=== PATIENT | male | born 1955 | race Caucasian/White ===

== ENCOUNTER 2022-07-15 03:17 | Emergency (ER) | payer OTHER, SELFPAY ==
[2022-07-15 03:18] VITALS: BP 114/70; PULSE 106; RESP 24; TEMP 36.1; O2SAT 98; BMI 22.1
--- NOTE | 2022-07-15 03:31 | EKG12_ITS ---
Test Reason : SOB Blood Pressure : / mmHG Vent. Rate : 100 BPM Atrial Rate : 100 BPM P-R Int : 170 ms QRS Dur : 094 ms QT Int : 342 ms P-R-T Axes : 074 088 071 degrees QTc Int : 441 ms Normal sinus rhythm Incomplete right bundle branch block Borderline ECG Confirmed by MAYURI SILVESTRE, JENNIFER ([id number]), state editor JOSE L MARTINEZ ([id number]) on 07/15/2022 2:03:04 PM Referred By: Confirmed By:JENNIFER MESSINA MD
--- NOTE | 2022-07-15 03:32 | ED.VIS.DYS ---
HPI History of Present Illness Chief Complaint: Shortness of Breath Informant: patient Narrative Narrative: Patient presents with shortness of breath. Patient states he has a history of asthma. He has a albuterol inhaler at home. But he also has been using his 's nebulizer for the last couple days. He states he started increasing wheezing and shortness of breath on Friday. He coughs but really is not bringing up any sputum. No hemoptysis. He feels tight in his chest. He states this feels like an asthma exacerbation to him but it is much worse. He has been on prednisone in the past but has been a long time. He denies ever having been admitted to the hospital before for this. No fevers or chills. Nothing is consistently making this better or worse. Inhalers help but very little. No recent travel surgery immobilization personal or family history of DVT or PE. No leg swelling. He has no history of heart disease. No high blood pressure cholesterol or diabetes. Not on home oxygen. He does still smoke. [facility] Medical History Asthma Home Medications albuterol sulfate 2.5 mg/3 mL (0.083 %) solution for nebulization 2.5 mg (3 mL) inhalation Q4H PRN #25 vials 07/15/22 [Rx Last Taken Unknown] prednisone 20 mg tablet 60 mg PO DAILY #15 tabs 07/15/22 [Rx Last Taken Unknown] Allergy/AdvReac Type Severity Reaction Status Date / Time No Known Allergies Allergy Verified 07/15/22 03:21 Social History Smoking Status: Current every day smoker tobacco type: cigarettes ROS ROS ED Constitutional Constitutional ED: Denies chills or fever(s) ENT ENT ED: Denies rhinorrhea or sore throat Cardiovascular Cardiovascular: Denies palpitations Respiratory/Chest Respiratory/Chest: Reports cough, dyspnea and dyspnea on exertion; Denies sputum Gastrointestinal Gastrointestinal: Denies abdominal pain, nausea or vomiting Genitourinary Genitourinary ED: Denies dysuria Musculoskeletal Musculoskeletal: Denies arthralgias or myalgias Integumentary Denies rash Neurologic Neurologic: Denies headache(s), paresthesias or weakness Endocrine Endocrinology: Denies polydipsia or polyuria Hematologic/Lymphatic Hematologic/Lymphatic: Denies easy bleeding or easy bruising Allergic/Immunologic Allergic/Immunologic ED: Denies urticaria EXAM Physical Exam Const Vital Signs: 07/15/22 03:18 07/15/22 03:21 Temperature 97 F L Temperature Source Temporal Pulse Rate 106 H Respiratory Rate 24 H Respiratory Effort Short of Breath Accessory Muscle Use Respiratory Pattern Tachypnea Blood Pressure 114/70 Blood Pressure Mean 84 Pulse Ox 98 Oxygen Delivery Method Room Air Positive well nourished and well developed Constitutional Narrative: Patient is having increased work of breathing. He sounds very tight. I can hear wheezes especially when he coughs. He carries on conversation but slightly shortened sentences. General Appearance ED: well developed HEENT Reports moist mucous membranes Eyes General Eye ED: Negative for scleral icterus Neck no JVD Resp Resp Narrative: Increased respiratory effort. There is actually very little breath sounds bilaterally. When I have him take a deep breath and blow out quickly I can hear wheeze. When he coughs I hear wheezing. I do not hear rhonchi or rales. But he has diffusely diminished breath sounds with poor air motion Auscultation: wheezes and diminished lung sounds; Negative for rales or rhonchi Cardio regular rhythm Rate: tachycardic GI non-tender Palpation: soft Back/Spine no CVA tenderness Extremity normal to inspection General Extremety ED: Negative for edema or tenderness General Extremity: Negative for edema Neuro Sensorium / Orientation: alert; Negative for lethargic or stuporous Psych mental status grossly normal Skin no wounds General Skin Exam: Negative for jaundice MDM MDM MDM Narrative Medical decision making narrative: Patient CBC shows normal white count hemoglobin and minimally low platelets. This is a nonspecific finding that can be followed up. Electrolytes show no marked abnormalities. Troponin was negative with over a day of symptoms. BNP was normal. Chest x-ray showed no acute process. I rechecked the patient. He is surprisingly improved. He is moving good air now. I hear almost no expiratory wheeze at all. He is laying back in bed and feeling much better. We walked him. His lowest saturation was 93% and he actually did quite well. I think we can get him home at this time. I will write for steroids. I will refill some albuterol nebulizer solution because he is out now. He was encouraged to quit smoking. We discussed returning if he is having worsening trouble breathing, fevers, sputum, blood in the sputum or any other concerns Lab Data Attestation: I reviewed the patient's lab results. Labs: Laboratory Results - last 24 hr 07/15/22 07/15/22 07/15/22 03:50 03:50 03:50 WBC 9.0 RBC 4.57 L Hgb 14.2 Hct 42.6 MCV 93.2 MCH 31.1 MCHC 33.3 RDW Std Deviation 47.7 H RDW Coeff of Ronnie 13.9 Plt Count 129 L MPV 12.0 Immature Gran % (Auto) 0.300 Neut % (Auto) 64.1 Lymph % (Auto) 18.2 L Ross % (Auto) 9.3 Eos % (Auto) 7.8 H Baso % (Auto) 0.3 Absolute Neuts (auto) 5.8 Absolute Lymphs (auto) 1.64 Nucleated RBC % 0 Differential Comment SCANNED Sodium 140 Potassium 4.1 Chloride 107 Carbon Dioxide 25.0 Anion Gap 8 BUN 14 Creatinine 0.64 L Estim Creat Clear Calc 123.54 Est GFR (MDRD) Af Amer 162 Est GFR (MDRD) Non-Af 134 BUN/Creatinine Ratio 21.9 H Glucose 113 H Calcium 8.7 Troponin I High Sens 4 B-Natriuretic Peptide 12.6 Radiography Diagnostic Testing: Clinical Impression(s) from Imaging Studies Chest X-Ray 07/15/22 04:18 IMPRESSION: No evidence of active intrathoracic disease. Electronically Signed: Zuleima Chung MD at 4:39 EDT , EKG Initial EKG: Comments: EKG shows normal sinus rhythm with overall rate of 100. No ectopy. No acute ST elevation or depression. There is a partial right bundle branch block. However, the CO interval, QRS duration and QTc are normal. Discharge Plan Triage Chief Complaint: Shortness of Breath ED Provider: Latrell Sanchez Dx/Rx/DC Orders Clinical Impression: Acute asthma exacerbation, Tobacco abuse Instructions: ED Asthma, Acute (Adult) Prescriptions: New albuterol sulfate 2.5 mg /3 mL (0.083 %) solution for nebulization 2.5 mg inhalation Q4H PRN Qty: 25 3RF Rx Instructions: Use q4 hours and PRN for wheezing prednisone 20 mg tablet 60 mg PO DAILY Qty: 15 0RF Primary Care Provider: Care Physician,No Primary Referrals: Katherin Cantrell MD [Med Staff - Radio Frequency Design Engineer] - 1-2 Days if not improving Care Physician,No Primary [Primary Care Provider] - Disposition Disposition: Home, Self Care
[2022-07-15] MEDS: MethylPREDNISolone 125 MG/2 ML Vial IV (03:50)
[2022-07-15] MEDS: Ipratropium/Albuterol Sulfate 3 ML AMPUL.NEB INHALATION (03:53)
[2022-07-15] MEDS: Albuterol 2.5 MG/3 ML VIAL.NEB. INHALATION (03:53)
[2022-07-15 04:00] LABS: Absolute Lymphocyte Count 1.64 X10^3/uL (0.83-4.51); Absolute Neutrophil Count 5.8 X10^3/uL (2.0-7.7); Basophil# 0.03 X10^3/uL; Basophil% 0.3 % (0-1); Eosinophils% 7.8 % (0-5); Hematocrit 42.6 % (40-54); Hemoglobin 14.2 g/dL (13.0-16.5); Lymphocyte # 1.64 X10^3/ul (0.83-4.51); Lymphocyte % 18.2 % (19-41); Mean Corp Hgb Conc 33.3 g/dL (32-36); Mean Corpuscular Hgb 31.1 pg (27.0-32.0); Mean Corpuscular Volume 93.2 fL (80-94); Monocyte# 0.84 X10^3/uL; Monocyte% 9.3 % (0-10); NRBC Flagged by Analyzer 0 % (0-5); Neutrophil # 5.75 X10^3/uL (2.7-7.7); Neutrophil % 64.1 % (47-70); POSITIVE MORPHOLOGY YES; Platelet Count 129 K/mm3 (150-450); RBC Distribution Width CV 13.9 % (11.6-14.6); RBC Distribution Width SD 47.7 fl (35.1-43.9); Red Blood Count 4.57 M/mm3 (4.6-6.2)
[2022-07-15 04:04] LABS: Differential Indicated SCAN CRITERIA MET
[2022-07-15 04:17] LABS: BNP,B-Type NATRIURETIC PEPTIDE 12.6 pg/mL (0-100)
--- NOTE | 2022-07-15 04:18 | RAD_ITS ---
STUDY: X-RAY CHEST REASON FOR EXAM: Male, 67 years old. SOB PATIENT FEELING SHORT OF BREATH ALL DAY TODAY. HISTORY OF ASHTMA, ALBUTEROL NOT HELPING HIM. TECHNIQUE: AP portable. 4:14 AM COMPARISON: None. FINDINGS: LUNGS: No consolidation. No pneumothorax. MEDIASTINUM: Aorta atherosclerotic. CARDIAC SILHOUETTE: Not enlarged. BONES AND SOFT TISSUES: No acute abnormalities. RAD/Chest 1 View (Portable) IMPRESSION: No evidence of active intrathoracic disease. Electronically Signed: Zuleima Chung MD at 4:39 EDT ,
[2022-07-15 04:19] LABS: Differential Comment SCANNED
[2022-07-15 04:20] LABS: Anion Gap 8 (5-15); BUN 14 mg/dL (7-18); BUN/Creat Ratio 21.9 RATIO (10-20); Calcium,Total 8.7 mg/dL (8.5-10.1); Chloride 107 mmol/L (98-107); Creatinine, Serum 0.64 mg/dL (0.70-1.30); EST Glomerular Filtration Rate 134 mL/min (>60); Est Glom Filt Rate - Afr Amer 162 mL/min (>60); Estimated Creatinine Clearance 123.54 ml/min; Glucose 113 mg/dL (74-106); Potassium 4.1 mmol/L (3.5-5.1); Sodium Level 140 mmol/L (136-145); Troponin-I HS 4 pg/mL (3.0-78.0)
[2022-07-15 05:26] VITALS: RESP 20; O2SAT 94; O2SAT 96
[2022-07-15 05:47] VITALS: PULSE 100; RESP 18; O2SAT 95
== END 2022-07-15 06:03 | disposition home or self-care (01) ==
PROVIDERS: Emergency Provider Emergency Medicine; Visit Provider Emergency Medicine
DX: J45.901 Unspecified asthma with (acute) exacerbation (principal); F17.210 Nicotine dependence, cigarettes, uncomplicated
CPT/HCPCS: 71045; 80048; 83880; 84484; 85025; 87428; 93005; 99285; A4216

== ENCOUNTER 2022-07-31 07:00 | Emergency (ER) | payer OTHER, SELFPAY ==
[2022-07-31 07:01] VITALS: BP 154/100; PULSE 94; RESP 22; TEMP 36.6; O2SAT 96; BMI 23.1
[2022-07-31 07:06] VITALS: O2SAT 96
--- NOTE | 2022-07-31 07:09 | EKG12_ITS ---
Test Reason : SOB Blood Pressure : / mmHG Vent. Rate : 083 BPM Atrial Rate : 083 BPM P-R Int : 128 ms QRS Dur : 102 ms QT Int : 360 ms P-R-T Axes : 071 087 064 degrees QTc Int : 423 ms Normal sinus rhythm Normal ECG Confirmed by ABIGAIL SILVESTRE, KENDRA ([id number]), marketing editor JOSE L MARTINEZ ([id number]) on 08/02/2022 2:01:39 PM Referred By: ALRIN Confirmed By:GRISELDA HAYES MD
--- NOTE | 2022-07-31 07:11 | ED.VIS.DYS ---
HPI History of Present Illness Chief Complaint: Asthma Informant: patient Onset/Context/Timing Onset: Days Context: gradual Timing: Continuous Current Severity: Mild Maximum Severity: Moderate Worsened by: Coughing Relieved by: Albuterol Associated Symptoms cough and clear sputum; Negative for fever, sore throat or sweats Chest Pain: Positive for None Narrative Narrative: 67-year-old male history of asthma. May have undiagnosed COPD because he had a long smoking history. Last asthma flare was about 2 weeks ago for which he was placed on 5 days of steroids. He does have both inhalers and nebulizer at home. He complains of a cough of clear sputum. No fever. No chest pain. No leg pain. No hemoptysis. No history of DVT or PE. PE Risk Factors: Negative for Cancer, OCP + Smoking + > 35, Prior DVT or PE, Recent immobilization, Recent surgery or Recent travel Prior similar symptoms: Yes Recent Illness/Hospitalization: No PFSH PFSH Medical History Asthma Home Medications albuterol sulfate 2.5 mg/3 mL (0.083 %) solution for nebulization 2.5 mg (3 mL) inhalation Q4H PRN #25 vials 07/15/22 [Rx Last Taken Unknown] albuterol sulfate 2.5 mg/3 mL (0.083 %) solution for nebulization 2.5 mg (3 mL) inhalation Q4H PRN #25 vials 07/31/22 [Rx Last Taken Unknown] prednisone 20 mg tablet 40 mg PO DAILY 10 days #20 tabs 07/31/22 [Rx Last Taken Unknown] Allergy/AdvReac Type Severity Reaction Status Date / Time No Known Allergies Allergy Verified 07/31/22 07:19 Social History Smoking Status: Current every day smoker tobacco type: cigarettes ROS ROS ED ROS Narrative Shortness of breath, wheezing, cough of clear sputum. Review of Systems ROS Unobtainable: Denies due to encephalopathy Constitutional Constitutional ED: Denies chills or fever(s) Eyes Eyes: Denies blurry vision ENT ENT ED: Denies ear pain or sore throat Cardiovascular Cardiovascular: Denies chest pain Respiratory/Chest Respiratory/Chest: Reports cough and dyspnea Gastrointestinal Gastrointestinal: Denies abdominal pain Genitourinary Genitourinary ED: Denies dysuria or hematuria Musculoskeletal Musculoskeletal: Denies arthralgias Integumentary Denies abscess Neurologic Neurologic: Denies headache(s) Psychiatric Psychiatric: Denies anxiety Endocrine Endocrinology: Denies cold intolerance Hematologic/Lymphatic Hematologic/Lymphatic: Denies easy bleeding Allergic/Immunologic Allergic/Immunologic ED: Denies mouth swelling EXAM Physical Exam Narrative Exam Narrative: 67-year-old male vital signs stable afebrile. at bedside. H EENT exam unremarkable. Neck nontender no JVD. No lymphadenopathy. Lungs prolonged expiratory phase. Expiratory wheezing. Decreased air movement. Heart regular rhythm rate about 95 no murmur. Chest wall nontender. Abdomen soft nontender. Moving all 4 extremities. Calves are nontender without edema or cords. Neurologically is awake and alert. He is able to speak but they are short and she sentences. He is obviously short of breath. Const Vital Signs: 07/31/22 07:01 07/31/22 07:06 07/31/22 07:20 Temperature 97.8 F Temperature Source Temporal Pulse Rate 94 86 Respiratory Rate 22 H 24 H Respiratory Effort Short of Breath Labored Respiratory Pattern Tachypnea Blood Pressure 154/100 H Blood Pressure Mean 118 Pulse Ox 96 Oxygen Delivery Method Room Air Room Air Positive well nourished and well developed; Negative for obese, cachectic, contractures or unkempt General Appearance ED: well developed; Negative for unkempt, cachectic, contractures or NAD Nutritional Appearance: Negative for cachectic or obese HEENT Reports moist mucous membranes; Denies dry mucous membranes atraumatic; Negative for trauma Mouth ED: No dry mucous membranes Mouth: No dry mucous membranes Eyes PERRL and EOMs intact bilaterally General Eye ED: Negative for pale conjunctiva or scleral icterus Neck no lymphadenopathy, supple, no meningeal signs and no JVD General: Negative for tenderness Lymph Lymphatic: Negative for other Chest Wall Chest: Negative for other Resp No normal respiratory effort and No clear to auscultation bilaterally Resp Narrative: Decreased breath sounds bilaterally. Expiratory wheezing. Decreased air movement. Prolonged expiratory phase. Effort and Inspection: Negative for pain with movement Auscultation: wheezes; Negative for rales or rhonchi Cardio regular rate, regular rhythm, S1 normal heart sound, S2 normal heart sound and no murmurs Rate: Negative for bradycardia Rhythm: Negative for abnormal rhythm GI non-tender, non-distended and no masses Inspection: Negative for other Auscultation: normoactive bowel sounds Palpation: soft; Negative for tender Bladder / Kidney Exam: No other Back/Spine no CVA tenderness and normal to inspection General Back: Negative for CVA tenderness Extremity normal to inspection General Extremety ED: Negative for edema General Extremity: Negative for edema Neuro oriented x3 and CN's II-XII intact bilaterally Sensorium / Orientation: alert and oriented to person Speech: speech normal Motor Exam: strength 5/5 throughout Psych mental status grossly normal Appearance: Negative for unkempt Attitude: No agitated Mood & Affect: Negative for depressed Thought Process: No normal thought process Skin no wounds General Skin Exam: Negative for jaundice Lesions: no lesions Rashes: no rashes Trauma: Negative for abrasion MDM MDM MDM Narrative Medical decision making narrative: 67-year-old male with a history of asthma most likely also underlying COPD has been undiagnosed. With wheezing and shortness of breath. He will be treated with aerosols oral prednisone. Chest x-ray and EKG will be obtained. Repeat exam patient is doing much better at 8:25 AM. We went over his EKG and chest x-ray results. Follow-up with primary care physician. Prednisone daily starting tomorrow. He was given refills for his home nebulizer. Radiography Chest X-Ray - ED: 1 View, Read by ED Physician, Heart, Lungs, Mediastinum, Bony Structures, No Acute Disease and Chronic Changes Diagnostic Testing: Clinical Impression(s) from Imaging Studies Chest X-Ray 07/31/22 07:35 IMPRESSION: Hyperinflation suggesting emphysema. Electronically Signed: Silvio Rick MD at 8:05 EDT , Chest x-ray, portable, single view interpreted by myself shows no acute process. Normal cardiac silhouette mediastinum. Normal lung murrieta. No infiltrate. No pulmonary edema. Chronic changes. Suspected underlying COPD. Rhythm Strip Rhythm Strip: Sinus Rhythm Rate: 83 Ectopy: None EKG Initial EKG: Attestation: I personally reviewed and interpreted this EKG as follows: Interpretation: Sinus Rhythm and No Acute Injury Pattern Comments: Normal sinus rhythm rate 83 no acute signs of ID or ischemia. No dysrhythmia. Discharge Plan Triage Chief Complaint: Asthma ED Provider: Leroy Allen Dx/Rx/DC Orders Clinical Impression: Acute asthma exacerbation, COPD (chronic obstructive pulmonary disease) Instructions: What Is COPD, Asthma Prescriptions: New prednisone 20 mg tablet 40 mg PO DAILY 10 Days Qty: 20 0RF albuterol sulfate 2.5 mg /3 mL (0.083 %) solution for nebulization 2.5 mg inhalation Q4H PRN Qty: 25 0RF Rx Instructions: Use q4 hours and PRN for wheezing No Action albuterol sulfate 2.5 mg /3 mL (0.083 %) solution for nebulization 2.5 mg inhalation Q4H PRN Qty: 25 3RF Rx Instructions: Use q4 hours and PRN for wheezing Primary Care Provider: Care Physician,No Primary Referrals: Patel Wright MD [Med Staff - Active Staff] - As soon as possible Marbin Nunez MD [Med Staff - Sharepoint Admin] - 1 Week Care Physician,No Primary [Primary Care Provider] - Activity Restrictions/Additional Instructions: Absolutely must stop smoking altogether. Prednisone 40 mg a day for the next 10 days. Follow-up with your primary care provider if not improving. Follow-up with a animal nutrition teacher. Return if worse. Disposition Disposition: Home, Self Care
[2022-07-31] MEDS: predniSONE 20 MG Tablet 80 MG PO (07:15)
[2022-07-31 07:20] VITALS: PULSE 86; RESP 24
--- NOTE | 2022-07-31 07:35 | RAD_ITS ---
EXAM: XR CHEST, 1 VIEW CLINICAL INDICATION: DYSPNEA TECHNIQUE: Frontal view of the chest. This report was created using Quarterly report generation technology. COMPARISON: XR Chest dated 07/15/2022 FINDINGS: LUNGS AND PLEURAL SPACES: Hyperinflation suggesting emphysema. No pulmonary airspace opacification. No pneumothorax. No effusion. HEART: Normal heart size. MEDIASTINUM: Central airways and mediastinal contour are unremarkable. BONES/JOINTS: No acute abnormality. SOFT TISSUES: Normal. RAD/Chest 1 View (Portable) IMPRESSION: Hyperinflation suggesting emphysema. Electronically Signed: Silvio Rick MD at 8:05 EDT ,
[2022-07-31] MEDS: Ipratropium/Albuterol Sulfate 3 ML AMPUL.NEB INHALATION (07:37)
[2022-07-31] MEDS: Albuterol 2.5 MG/3 ML VIAL.NEB. INHALATION ×2 (07:40)
[2022-07-31 08:42] VITALS: BP 118/76; PULSE 89; RESP 16; O2SAT 98
--- NOTE | 2022-07-31 09:16 | ED.RN ---
PT BROUGHT IN AEROSOL [place] PACKAGE THAT HE REPORTS HE HAD FILLED AT [facility] TO [facility] HERE AT THE HOSPITAL. ACCORDING TO D/C PAPERWORK FROM 07/15/2022 VISIT PT PRESCRIPTION WAS FOR ALBUTEROL 2.5MG IN 3ML. PT RECEIVED THE ALBUTEROL 2.5 MG IN 0.5ML. PHARMACY NOTIFIED THIS RN SPOKE WITH [facility] PHARMACIST IN REGARDS TO THIS MATTER. PT ENCOURAGED BY THIS RN TO TAKE THE PRESCRIPTION HE RECEIVED BACK TO THE PHARMACY. PT VERBALIZES UNDERSTANDING AND DENIES FURTHER QUESTIONS. AT PT REQUEST THIS RN SENT THE PRESCRIPTIONS FROM TODAY'S VISIT TO RETAIL PHARMACY. THIS RN CALLED PHARMACY AND GOT VERBAL CONFIRMATION FROM PHARMACY SALES REPRESENTATIVE THAT THE PRESCRIPTIONS WERE RECEIVED.
== END 2022-07-31 09:15 | disposition home or self-care (01) ==
PROVIDERS: Emergency Provider Emergency Medicine; Visit Provider Emergency Medicine
DX: J45.901 Unspecified asthma with (acute) exacerbation (principal); J44.9 Chronic obstructive pulmonary disease, unspecified; F17.210 Nicotine dependence, cigarettes, uncomplicated
CPT/HCPCS: 71045; 93005; 94640; 99284

== ENCOUNTER 2022-09-09 05:06 | Emergency (ER) | payer OTHER, SELFPAY ==
[2022-09-09 05:07] VITALS: BP 185/92; PULSE 114; RESP 24; TEMP 36.1; O2SAT 93; BMI 22.8
--- NOTE | 2022-09-09 05:12 | EKG12_ITS ---
Test Reason : DYSRHYTHMIA Blood Pressure : / mmHG Vent. Rate : 121 BPM Atrial Rate : 121 BPM P-R Int : 118 ms QRS Dur : 096 ms QT Int : 338 ms P-R-T Axes : 075 089 070 degrees QTc Int : 479 ms Sinus tachycardia N[address] abnormality Abnormal ECG Confirmed by MAYURI SILVESTRE, JENNIFER ([id number]), science editor JOSE L MARTINEZ ([id number]) on 09/10/2022 9:09:01 AM Referred By: FEDERICO Confirmed By:JENNIFER MESSINA MD
[2022-09-09 05:13] VITALS: O2SAT 93
--- NOTE | 2022-09-09 05:15 | EDS_ITS ---
HPI History of Present Illness Chief Complaint: Shortness of Breath Informant: patient Narrative Narrative: Patient is 67-year-old male with history of of tobacco use and COPD presenting with shortness of breath. Patient states he woke up around 1 AM and felt really short of breath. He used to home nebulizer treatments and even tried his 's oxygen with no improvement of his symptoms. Came in for further evaluation. He notes he was recently treated for COPD exacerbation about a week ago and just finished steroids 2 days ago. Feels that his breathing is gotten worse since then. He was laying down rat poison underneath his trailer yesterday and is not sure if this is related to his respiratory symptoms today. Has some chest tightness but denies any significant chest pain. Denies any cough. Denies any fever or chills. No other complaints at this time. Notes he is at increased frequency exacerbations of his COPD over the past few months. [facility] Medical History Asthma History of COVID-19 History of skin cancer Home Medications albuterol sulfate 90 mcg/actuation aerosol inhaler 2 puff inhalation Q6H PRN shortness of breath or wheezing #8.5 grams 09/03/22 [Rx Last Taken Unknown] ipratropium 0.5 mg-albuterol 3 mg (2.5 mg base)/3 mL nebulization soln 3 ml inhalation Q6H PRN shortness of breath or wheezing #90 mL 09/03/22 [Rx Last Taken Unknown] prednisone 20 mg tablet 40 mg PO DAILY #10 tabs 09/03/22 [Rx Last Taken Unknown] umeclidinium 62.5 mcg-vilanterol 25 mcg/actuation powdr for inhalation (Anoro Ellipta) 1 inh inhalation DAILY 09/03/22 [History Last Taken Unknown] azithromycin 250 mg tablet 250 mg PO DAILY 4 days #4 tabs 09/09/22 [Rx Last Taken Unknown] prednisone 20 mg tablet 40 mg PO DAILY #10 tabs 09/09/22 [Rx Last Taken Unknown] Allergy/AdvReac Type Severity Reaction Status Date / Time No Known Allergies Allergy Verified 09/03/22 11:01 Family History Other No pertinent family history Surgical History History of surgery on wrist Social History household members: spouse current occupational status: employed 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 Smoking Status: Current every day smoker tobacco type: cigarettes Tobacco: How many years used: 40 Electronic Cigarette Use: not used quit status: considering quitting alcohol intake: former substance use type: does not use what type of physical activity do you participate in: walking do you feel safe at home: Yes ROS ROS ED Constitutional Constitutional ED: Denies chills or fever(s) Eyes Eyes: Denies change in vision ENT ENT ED: Denies rhinorrhea or sore throat Cardiovascular Cardiovascular: Denies chest pain or palpitations Respiratory/Chest Respiratory/Chest: Reports dyspnea and dyspnea on exertion; Denies cough Gastrointestinal Gastrointestinal: Denies abdominal pain, nausea or vomiting Musculoskeletal Musculoskeletal: Denies arthralgias, back pain or myalgias Integumentary Denies rash Neurologic Neurologic: Denies headache(s) or weakness Psychiatric Psychiatric: Denies anxiety Hematologic/Lymphatic Hematologic/Lymphatic: Denies easy bleeding or easy bruising EXAM Physical Exam Const Vital Signs: 09/09/22 05:07 09/09/22 05:13 09/09/22 05:18 Temperature 97.0 F L Temperature Source Temporal Pulse Rate 114 H 106 H Respiratory Rate 24 H 22 H Respiratory Effort Short of Breath Accessory Muscle Use Respiratory Depth Shallow Respiratory Pattern Tachypnea Tachypnea Blood Pressure 185/92 H Blood Pressure Mean 123 Pulse Ox 93 Oxygen Delivery Method Room Air Room Air 09/09/22 05:18 Temperature Temperature Source Pulse Rate Respiratory Rate 30 H Respiratory Effort Short of Breath Labored Respiratory Depth Shallow Respiratory Pattern Tachypnea Blood Pressure Blood Pressure Mean Pulse Ox 96 Oxygen Delivery Method Room Air Positive well nourished and well developed Constitutional Narrative: Uncomfortable appearing associated with respiratory effort General Appearance ED: well developed HEENT Reports dry mucous membranes Mouth ED: Yes dry mucous membranes Mouth: dry mucous membranes Eyes PERRL and EOMs intact bilaterally Neck supple Chest Wall Chest Narrative: No chest wall tenderness or crepitus appreciated Resp Resp Narrative: Increased respiratory effort. Very diminished breath sounds throughout with some scattered expiratory wheezing Cardio regular rhythm and no murmurs Rate: tachycardic GI non-tender and non-distended Extremity normal to inspection General Extremety ED: Negative for edema or tenderness General Extremity: Negative for edema Neuro oriented x3 Neuro Narrative: No focal deficits appreciated Psych mental status grossly normal Skin no wounds Rashes: no rashes MDM MDM MDM Narrative Medical decision making narrative: Patient is evaluated for shortness of breath. Patient has had hours of shortness of breath at home prior to coming in that were not responding to breathing treatments. On arrival patient is tachycardic, tachypneic and 93% on room air. He has severely diminished air movement on exam. He is given stacked breathing treatments and IV Solu-Medrol. On repeat evaluation he is still mildly tachypneic but states he is feeling better and would like to wait before any further decisions are made for his disposition. He is found to have leukocytosis of 14.4 however he was recently on a course of steroids they just finished 2 days ago. Troponin and BMP otherwise normal. Chest x-ray does not show any acute process interpreted by myself as well as radiology. On further evaluation patient is now breathing much more comfortably. He has much improved air movement. He would like to go home. He is ambulated and does not desatura te. He looks much better. Counseled that if symptoms return he will need to return to the emergency room caution with how severe his initial presentation was. He verbalizes agreement understanding with this. He is empirically placed on azithromycin as well as a course of prednisone. Encouraged follow-up with his primary care doctor. Discharged home in stable and improved condition. Counseled the importance of abstaining from cigarette smoking. Lab Data Attestation: I reviewed the patient's lab results. Labs: Laboratory Results - last 24 hr 09/09/22 09/09/22 05:10 05:10 WBC 14.4 H RBC 4.92 Hgb 15.6 Hct 46.5 MCV 94.5 H MCH 31.7 MCHC 33.5 RDW Std Deviation 46.9 H RDW Coeff of Ronnie 13.4 Plt Count 176 MPV 12.3 H Immature Gran % (Auto) 0.500 Neut % (Auto) 65.2 Lymph % (Auto) 20.8 [place] % (Auto) 11.3 H Eos % (Auto) 1.9 Baso % (Auto) 0.3 Absolute Neuts (auto) 9.4 H Absolute Lymphs (auto) 2.98 Nucleated RBC % 0 Sodium 141 Potassium 4.4 Chloride 106 Carbon Dioxide 28.0 Anion Gap 7 BUN 14 Creatinine 0.77 Estim Creat Clear Calc 106.16 Est GFR (MDRD) Af Amer 131 Est GFR (MDRD) Non-Af 108 BUN/Creatinine Ratio 18.3 Glucose 119 H Calcium 9.3 Troponin I High Sens 5 Radiography Chest X-Ray - ED: 1 View, Read by ED Physician, Read by Radiologist and No Acute Disease Diagnostic Testing: Clinical Impression(s) from Imaging Studies Chest X-Ray 09/09/22 05:55 IMPRESSION: No evidence of active intrathoracic disease. Electronically Signed: Zuleima Chung MD at 6:15 EDT , Rhythm Strip Rhythm Strip: Sinus Tach Rate: 121 Ectopy: None EKG Initial EKG: Attestation: I personally reviewed and interpreted this EKG as follows: Interpretation: Sinus Tachycardia Comments: Sinus tachycardia rate of 121 Right axis deviation Normal intervals Nonspecific ST abnormalities, likely rate related Discharge Plan Triage Chief Complaint: Shortness of Breath ED Provider: Amy Siddiqui Dx/Rx/DC Orders Clinical Impression: Acute exacerbation of COPD with asthma, Current smoker Instructions: ED COPD Flare Prescriptions: New prednisone 20 mg tablet 40 mg PO DAILY Qty: 10 0RF azithromycin 250 mg tablet 250 mg PO DAILY 4 Days Qty: 4 0RF Rx Instructions: start on day 2 of therapy No Action Anoro Ellipta 62.5-25 mcg/actuation blister with device 1 inh inhalation DAILY prednisone 20 mg tablet 40 mg PO DAILY Qty: 10 0RF ipratropium-albuterol 0.5 mg-3 mg(2.5 mg base)/3 mL solution for nebulization 3 ml inhalation Q6H PRN (Reason: shortness of breath or wheezing) Qty: 90 0RF albuterol sulfate 90 mcg/actuation HFA aerosol inhaler 2 puff inhalation Q6H PRN (Reason: shortness of breath or wheezing) Qty: 8.5 1RF Primary Care Provider: Ella Ventura Referrals: Ella Ventura MD [Primary Care Provider] - Activity Restrictions/Additional Instructions: Return to the emergency immediately if you develop worsening shortness of breath or difficulty breathing like you had when you came in. Follow-up closely with your primary care doctor. Disposition Disposition: Home, Self Care
[2022-09-09 05:18] VITALS: PULSE 106; RESP 22; RESP 30; O2SAT 96
[2022-09-09] MEDS: 0.9% Normal Saline 1,000 ML 999 ML IV (05:18)
[2022-09-09] MEDS: Ipratropium/Albuterol Sulfate 3 ML AMPUL.NEB INHALATION (05:18)
[2022-09-09] MEDS: MethylPREDNISolone 125 MG/2 ML Vial IV (05:19)
[2022-09-09 05:28] LABS: Absolute Lymphocyte Count 2.98 X10^3/uL (0.83-4.51); Absolute Neutrophil Count 9.4 X10^3/uL (2.0-7.7); Basophil# 0.05 X10^3/uL; Basophil% 0.3 % (0-1); Eosinophil# 0.27 X10^3/uL; Eosinophils% 1.9 % (0-5); Hematocrit 46.5 % (40-54); Hemoglobin 15.6 g/dL (13.0-16.5); Lymphocyte # 2.98 X10^3/ul (0.83-4.51); Lymphocyte % 20.8 % (19-41); Mean Corp Hgb Conc 33.5 g/dL (32-36); Mean Corpuscular Hgb 31.7 pg (27.0-32.0); Mean Corpuscular Volume 94.5 fL (80-94); Mean Platelet Vol. 12.3 fl (6.2-12.0); Monocyte# 1.62 X10^3/uL; Monocyte% 11.3 % (0-10); NRBC Flagged by Analyzer 0 % (0-5); Neutrophil # 9.37 X10^3/uL (2.7-7.7); Neutrophil % 65.2 % (47-70); POSITIVE DIFFERENTIAL YES; POSITIVE MORPHOLOGY YES; Platelet Count 176 K/mm3 (150-450); RBC Distribution Width CV 13.4 % (11.6-14.6); RBC Distribution Width SD 46.9 fl (35.1-43.9); Red Blood Count 4.92 M/mm3 (4.6-6.2); White Blood Count 14.4 K/mm3 (4.4-11.0)
[2022-09-09] MEDS: Albuterol 2.5 MG/3 ML VIAL.NEB. INHALATION ×3 (05:29→05:52)
[2022-09-09 05:50] LABS: Anion Gap 7 (5-15); BUN 14 mg/dL (7-18); BUN/Creat Ratio 18.3 RATIO (10-20); Calcium,Total 9.3 mg/dL (8.5-10.1); Chloride 106 mmol/L (98-107); Creatinine, Serum 0.77 mg/dL (0.70-1.30); Differential Indicated SCAN CRITERIA MET; EST Glomerular Filtration Rate 108 mL/min (>60); Est Glom Filt Rate - Afr Amer 131 mL/min (>60); Estimated Creatinine Clearance 106.16 ml/min; Glucose 119 mg/dL (74-106); Potassium 4.4 mmol/L (3.5-5.1); Sodium Level 141 mmol/L (136-145); Troponin-I HS 5 pg/mL (3.0-78.0)
--- NOTE | 2022-09-09 05:55 | RAD_ITS ---
STUDY: X-RAY CHEST REASON FOR EXAM: Male, 67 years old. shortness of breath TECHNIQUE: AP portable. 5:54 AM. COMPARISON: 07/31/2022. FINDINGS: LUNGS: No consolidation. Probable calcified granuloma in the left upper lung. No pneumothorax. MEDIASTINUM: Aorta atherosclerotic. CARDIAC SILHOUETTE: Not enlarged. BONES AND SOFT TISSUES: Degenerative changes of the dorsal spine. RAD/Chest 1 View (Portable) IMPRESSION: No evidence of active intrathoracic disease. Electronically Signed: Zuleima Chung MD at 6:15 EDT ,
--- NOTE | 2022-09-09 06:00 | CPS ---
x3 Albuterol given to pt. in ER as well
--- NOTE | 2022-09-09 06:36 | NURSING ---
PT AMBULATED ON ROOM AIR. PULSE OX 95%. NO DISTRESS. DR NOTIFIED.
[2022-09-09] MEDS: Azithromycin 250 MG Tablet 500 MG PO (06:44)
[2022-09-09 06:46] VITALS: BP 149/68; PULSE 100; RESP 16; O2SAT 96
[2022-09-09 06:51] VITALS: O2SAT 96
[2022-09-09 06:54] VITALS: BP 149/68; PULSE 100; RESP 16; O2SAT 96
[2022-09-09 14:00] LABS: Pathologist Review Reviewed
== END 2022-09-09 06:56 | disposition home or self-care (01) ==
PROVIDERS: Emergency Provider Emergency Medicine; PCP Internal Medicine; Visit Provider Emergency Medicine
DX: J44.1 Chronic obstructive pulmonary disease with (acute) exacerbation (principal); F17.210 Nicotine dependence, cigarettes, uncomplicated; R06.02 Shortness of breath; Z79.52 Long term (current) use of systemic steroids
CPT/HCPCS: 71045; 80048; 84484; 85025; 93005; 94640; 99251; 99284; J7030; A4216; G0463

== ENCOUNTER → 2022-09-26 | Outpatient (CLI) | payer OTHER, SELFPAY ==
--- NOTE | 2022-09-26 08:56 | AAAS_ITS ---
Reason For Study: Screening Aorta Measurements Aorta Doppler Measurements Proximal aorta measures1.71 x 1.74cm. in cross- Peak systolic flow velocities within the proximal sectional axis. aorta measure 11.04 cm/sec. Proximal aorta measures1.72cm. in longitudinal Peak systolic flow velocities within the mid aorta axis. measure 65.1 cm/sec. Mid aorta measures1.58 x 1.55cm. in cross- Peak systolic flow velocities within the distal sectional axis. aorta measure 74.1 cm/sec. Mid aorta measures1.58cm. in longitudinal axis. Distal aorta measures1.55 x 1.60cm. in cross- sectional axis. Distal aorta measures1.61cm. in longitudinal axis. Left Iliac Artery Left iliac artery measures 0.81 x 0.83 cm. in the cross-sectional axis. Left iliac artery measures 0.83 cm. in the longitudinal axis. Peak systolic velocity in the left iliac artery measures 124.9 cm/sec. Right Iliac Artery Right iliac artery measures 0.87 x 0.86 cm. in the cross-sectional axis. Right iliac artery measures 0.87 cm. in the longitudinal axis. Peak systolic velocity in the right iliac artery measures 101.3 cm/sec. Procedure Aorta IVC Iliac vasculature or bypass grafts [id number]. Exam performed in department. VL/AAA Screening Interpretation Summary Maximal aortic dimensions approximately a 1.71 x 1.74 cm diameter which is norm al flow velocity slightly elevated at 110 cm/s peak systolic flow likely not of clinical signifi cance. Left common iliac artery 0.81 x 0.83 cm in diameter which is normal Right common iliac 0.87 x 0.86 cm in diameter which is normal Ordering Physician: Ella Ventura Referring Physician: Ella Ventura Performed By: Amalia Pardo RVT
--- NOTE | 2022-09-26 16:15 | PFTCOMP_ITS ---
COMPLETE PULMONARY FUNCTION TEST INTERPRETATION Brief HPI: Patient is a 67-year-old male, currently under the care of Dr. Maurice, who presents to [facility] for complete pulmonary function tests secondary to diagnosis of screening. Respiratory therapist reports good effort and reproducible results. Interpretation: Forced expiration spirometry shows a moderate large airways obstructive ventilatory defect with an FEV1 of 67% predicted. There is a significant bronchodilator response in FEV1 by strict ATS criteria. Spirograms are of good quality and plateau slowly, indicating slowly emptying areas of the lungs. The respiratory flow volume loop shows decreased expiratory flow rates at all lung volumes consistent with airway obstruction. Lung volumes by body plethysmography show an elevated total lung capacity at 8.7 L, 115% predicted. FRC and RV are elevated out of proportion. Lung volume measurements are consistent with hyperinflation and air-trapping. Diffusion capacity by carbon monoxide is normal at 95% predicted. The airway resistance is slightly elevated. No previous pulmonary function tests were available for review. Impression: Partially reversible moderate large airways obstructive ventilatory defect with relatively preserved diffusion capacity
== END | disposition home or self-care (01) ==
LOC: CVS 08:55
PROVIDERS: PCP Internal Medicine; Referring Provider Internal Medicine; Visit Provider Internal Medicine
DX: J44.9 Chronic obstructive pulmonary disease, unspecified (principal); F17.200 Nicotine dependence, unspecified, uncomplicated; Z13.6 Encounter for screening for cardiovascular disorders
CPT/HCPCS: 76706; 94060; 94726; 94729

== ENCOUNTER 2024-09-22 11:18 | Emergency (ER) | payer OTHER, SELFPAY ==
[2024-09-22 11:19] VITALS: BP 115/53; PULSE 89; RESP 19; TEMP 36.3; O2SAT 97
[2024-09-22 11:21] VITALS: BMI 23.1
--- NOTE | 2024-09-22 11:40 | EKG12_ITS ---
Test Reason : GEN Blood Pressure : / mmHG Vent. Rate : 083 BPM Atrial Rate : 083 BPM P-R Int : 134 ms QRS Dur : 096 ms QT Int : 358 ms P-R-T Axes : 069 083 067 degrees QTc Int : 420 ms Normal sinus rhythm Incomplete right bundle branch block Borderline ECG Confirmed by MAYURI SILVESTRE, JENNIFER ([id number]), senior technical editor JOSE L MARTINEZ ([id number]) on 09/23/2024 9:19:38 AM Referred By: Confirmed By:JENNIFER MESSINA MD
--- NOTE | 2024-09-22 11:42 | EX.ED.DYSGE1 ---
HPI History of Present Illness Chief Complaint: Neuro S/Sx Detail of Chief Complaint: Shortness of breath Informant: patient Narrative Narrative: Patient presents to the emergency department complaint shortness of breath. Patient states that he has been under increased stress at home and that his recently had hip replacement and for the last 2 weeks he has been providing care for her. Since last night he started having some difficulty breathing and he has a history of asthma. He used a nebulizer in the feels somewhat improved. Patient complains of a cough and bringing up some thick white phlegm. He denies fevers or chills or sweats. Patient went to work today after being off for couple weeks. While at work he began feeling short of breath again and apparently coworkers and think he looked well. He was given a pill believed to be Klonopin for anxiety. Comes in now for evaluation. He denies any stroke symptoms of weakness in the extremities or difficulty with speech or vision. He denies any paresthesias. [facility] Medical History Asthma History of COVID-19 History of skin cancer Home Medications ?Medication ?Instructions ?Recorded ?Last Taken ?Type albuterol sulfate 90 mcg/actuation 2 puff inhalation Q6H PRN 09/03/22 Unknown Rx aerosol inhaler shortness of breath or wheezing #8.5 grams cyclobenzaprine 5 mg tablet 5 mg PO BID PRN pain #20 tabs 01/13/23 Unknown Rx prednisone 20 mg tablet 40 mg (2 x 20 mg) PO DAILY #10 tabs 01/13/23 Unknown Rx albuterol sulfate 2.5 mg/3 mL 2.5 mg (3 mL) inhalation Q6H PRN 11/21/23 Unknown Rx (0.083 %) solution for nebulization shortness of breath or wheezing #60 ea budesonide 160 mcg-glycopyr 9 2 inh inhalation BID #10.7 grams 11/21/23 Unknown Rx mcg-formot 4.8 mcg/actuation HFA inhaler (Breztri Aerosphere) ipratropium bromide 0.02 % 2.5 ml inhalation Q6H PRN 11/21/23 Unknown Rx solution for inhalation shortness of breath or wheezing #62.5 mL albuterol sulfate 2.5 mg/3 mL 2.5 mg (3 mL) inhalation Q4H PRN 10/23/24 Unknown Rx (0.083 %) solution for nebulization bronchospasm #75 mL prednisone 20 mg tablet 20 mg PO BID #10 tabs 09/22/24 Unknown Rx Allergy/AdvReac Type Severity Reaction Status Date / Time No Known Allergies Allergy Verified 01/13/23 09:39 Family History Other No pertinent family history Surgical History History of surgery on wrist Social History household members: spouse current occupational status: employed 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 Smoking Status: Current every day smoker tobacco type: cigarettes Tobacco: How many years used: 40 Electronic Cigarette Use: not used quit status: considering quitting alcohol intake: former substance use type: does not use what type of physical activity do you participate in: walking do you feel safe at home: Yes ROS ROS ED Review of Systems ROS Unobtainable: other Constitutional Constitutional ED: Reports lethargy; Denies chills, fever(s), sweats or weight loss Eyes Eyes: Denies blurry vision, change in vision or diplopia ENT ENT ED: Denies rhinorrhea or sore throat Cardiovascular Cardiovascular: Denies chest pain, orthopnea or racing heartbeat Respiratory/Chest Respiratory/Chest: Reports cough, dyspnea and dyspnea on exertion; Denies orthopnea or sputum Gastrointestinal Gastrointestinal: Denies abdominal pain, diarrhea, nausea or vomiting Genitourinary Genitourinary ED: Denies dysuria, hematuria or urinary frequency Musculoskeletal Musculoskeletal: Denies arthralgias, back pain, myalgias or neck pain Integumentary Denies abscess, Abrasions or rash Neurologic Neurologic: Denies headache(s) or weakness Psychiatric Psychiatric: Denies anxiety, depression or suicidal thoughts Endocrine Endocrinology: Denies polydipsia, polyphagia or polyuria Hematologic/Lymphatic Hematologic/Lymphatic: Denies easy bleeding, easy bruising or lymphadenopathy Allergic/Immunologic Allergic/Immunologic ED: Denies mouth swelling, tongue swelling or urticaria EXAM Physical Exam Const Vital Signs: 09/22/24 11:19 09/22/24 11:40 09/22/24 12:00 Temperature 97.4 F L Temperature Source Temporal Pulse Rate 89 75 Respiratory Rate 19 H 18 Respiratory Pattern Normal Blood Pressure 115/53 L Blood Pressure Mean 73 Pulse Ox 97 Oxygen Delivery Method Room Air Room Air 09/22/24 12:19 09/22/24 13:00 Temperature Temperature Source Pulse Rate 73 79 Respiratory Rate 22 H 22 H Respiratory Pattern Blood Pressure 118/65 125/58 H Blood Pressure Mean 82 80 Pulse Ox 95 98 Oxygen Delivery Method Room Air Positive well nourished and well developed General Appearance ED: well developed and NAD HEENT Reports TM's clear and moist mucous membranes normocephalic and atraumatic; Negative for trauma or tenderness Tympanic Membrane ED: Yes TM's clear Eyes PERRL and EOMs intact bilaterally General Eye ED: Negative for pale conjunctiva or scleral icterus Neck no lymphadenopathy, supple and no JVD General: Negative for tenderness Chest Wall inspection of chest normal and palpation of chest normal Chest: Negative for tenderness Resp normal respiratory effort and clear to auscultation bilaterally Effort and Inspection: Negative for respiratory distress or pain with movement Auscultation: Negative for rhonchi, wheezes or diminished lung sounds Cardio regular rate, regular rhythm, S1 normal heart sound, S2 normal heart sound and no murmurs Peripheral Pulses: pulses 2+ throughout GI normal to inspection, nondistended, normoactive bowel sounds, soft to palpation, non-tender, non-distended and no masses Back/Spine no CVA tenderness and no thoracic nor lumbar tenderness Extremity normal to inspection General Extremety ED: Negative for edema General Extremity: Negative for edema Neuro oriented x3, CN's II-XII intact bilaterally, no sensory deficits noted and gait normal Neuro Narrative: No focal deficits on exam. NIH stroke scale is a 0. Sensorium / Orientation: awake, alert, oriented to person, oriented to place and oriented to time Motor Exam: strength 5/5 throughout and strength abnormal Psych mental status grossly normal Skin no rashes or lesions noted and no wounds MDM MDM MDM Narrative Medical decision making narrative: Patient presents with cough for several nights. Bring up some thick white phlegm at times. He said no fever chills or sweats. He tells he has history of asthma. Patient also under increased stress at home because his depending on him after hip replacement and she is not progressing like he would have expected. Somebody at work today gave him the Klonopin because they thought he was having a panic attack. He denies any neurologic symptoms of difficulty with speech or vision or weakness. NIH stroke scale is a 0. Patient had a DuoNeb aerosol given and was given Solu-Medrol 125 mg IV. CBC with differential white count 9.0 with hemoglobin 15.4 and platelet count of 129. Chemistries unremarkable. Lactate normal at 1.8. Patient had an EKG on arrival showed a sinus rhythm with ventricular rate of 83 bpm with an incomplete right bundle branch block. 1 view chest x-ray obtained interpreted by myself as no evidence of infiltrate or pneumothorax or acute disease process. Radiology in agreement. This point patient clinically looks well. Recommended follow-up with primary care physician within next 3 to 5 days. Patient will be started on prednisone and will dispense an albuterol MDI as well as albuterol for his nebulizer. Advised to follow-up with primary care physician. Advised to return if increasing shortness of breath or condition worsen anyway. He has had no fever. I did offer to test him for COVID flu and RSV and he is declining. Lab Data Attestation: I reviewed the patient's lab results. Labs: Laboratory Results - last 24 hr 09/22/24 11:54 WBC 9.0 RBC 4.97 Hgb 15.4 Hct 45.8 MCV 92.2 MCH 31.0 MCHC 33.6 RDW Std Deviation 43.3 RDW Coeff of Ronnie 12.9 Plt Count 129 L MPV 13.2 H Immature Gran % (Auto) 1.800 H Neut % (Auto) 59.5 Lymph % (Auto) 24.9 [place] % (Auto) 10.2 H Eos % (Auto) 3.3 Baso % (Auto) 0.3 Absolute Neuts (auto) 5.3 Absolute Lymphs (auto) 2.23 Nucleated RBC % 0 Differential Comment SCANNED Sodium 135 L Potassium 4.2 Chloride 103 Carbon Dioxide 27.0 Anion Gap 5 BUN 13 Creatinine 0.87 Estim Creat Clear Calc 90.43 Est GFR (MDRD) Af Amer 113 Est GFR (MDRD) Non-Af 93 BUN/Creatinine Ratio 15.0 Glucose 100 Lactic Acid 1.8 Calcium 9.2 Radiography Diagnostic Testing: Clinical Impression(s) from Imaging Studies Chest X-Ray 09/22/24 11:51 IMPRESSION: Hyperinflation. The lungs are clear. Electronically Signed: Adrian Moon MD at 12:09 EDT , 1 view chest x-ray obtained interpreted by myself as no evidence of infiltrate or pneumothorax or acute disease process. Radiology in agreement. EKG Initial EKG: Attestation: I personally reviewed and interpreted this EKG as follows: Comments: Sinus rhythm with ventricular rate of 83 bpm with incomplete right bundle branch block Discharge Plan Triage Chief Complaint: Neuro S/Sx Other Complaint: Anxiety ED Provider: Mallory Carrera Dx/Rx/DC Orders Clinical Impression: Acute exacerbation of COPD with asthma, Asthmatic bronchitis Instructions: ED Bronchitis with Wheezing (Adult) Prescriptions: New prednisone 20 mg tablet 20 mg PO BID Qty: 10 0RF albuterol sulfate 2.5 mg /3 mL (0.083 %) solution for nebulization 2.5 mg inhalation Q4H PRN (Reason: bronchospasm) Qty: 75 0RF No Action albuterol sulfate 90 mcg/actuation HFA aerosol inhaler 2 puff inhalation Q6H PRN (Reason: shortness of breath or wheezing) Qty: 8.5 1RF prednisone 20 mg tablet 40 mg PO DAILY Qty: 10 0RF cyclobenzaprine 5 mg tablet 5 mg PO BID PRN (Reason: pain) Qty: 20 0RF Breztri Aerosphere 160-9-4.8 mcg/actuation HFA aerosol inhaler 2 inh inhalation BID Qty: 10.7 1RF ipratropium bromide 0.02 % solution 2.5 ml inhalation Q6H PRN (Reason: shortness of breath or wheezing) Qty: 62.5 0RF albuterol sulfate 2.5 mg /3 mL (0.083 %) solution for nebulization 2.5 mg inhalation Q6H PRN (Reason: shortness of breath or wheezing) Qty: 60 0RF Primary Care Provider: Ella Ventura Referrals: Ella Ventura MD [Primary Care Provider] - 3-5 Days Print Language: Croatian Disposition Disposition: Home, Self Care
--- NOTE | 2024-09-22 11:51 | RAD_ITS ---
STUDY: X-RAY CHEST REASON FOR EXAM: Male, 69 years old. Cough TECHNIQUE: Single AP portable view of the chest. COMPARISON: Comparison is made with prior study September 09, 2022. FINDINGS: Hyperinflation. The lungs are clear. There is no demonstrated pleural abnormality. Normal size heart. Normal mediastinum and shakira. Normal visualized pulmonary arteries. There is atherosclerotic tortuosity of the aortic arch and descending thoracic aorta. There are diffuse degenerative changes of the visualized thoracic spine. Normal visualized ribs, clavicles, and shoulders. There is no demonstrated abnormality of the visualized soft tissue structures of the upper abdomen. RAD/Chest 1 View (Portable) IMPRESSION: Hyperinflation. The lungs are clear. Electronically Signed: Adrian Moon MD at 12:09 EDT ,
[2024-09-22] MEDS: Ipratropium/Albuterol Sulfate 3 ML AMPUL.NEB INHALATION (11:59)
[2024-09-22 12:00] VITALS: PULSE 75; RESP 18
[2024-09-22] MEDS: MethylPREDNISolone 125 MG/2 ML Vial IV (12:09)
[2024-09-22 12:12] LABS: Absolute Lymphocyte Count 2.23 X10^3/uL (0.83-4.51); Absolute Neutrophil Count 5.3 X10^3/uL (2.0-7.7); Basophil# 0.03 X10^3/uL; Basophil% 0.3 % (0-1); Eosinophils% 3.3 % (0-5); Hematocrit 45.8 % (40-54); Hemoglobin 15.4 g/dL (13.0-16.5); Lymphocyte # 2.23 X10^3/ul (0.83-4.51); Lymphocyte % 24.9 % (19-41); Mean Corp Hgb Conc 33.6 g/dL (32-36); Mean Corpuscular Volume 92.2 fL (80-94); Mean Platelet Vol. 13.2 fl (6.2-12.0); Monocyte# 0.91 X10^3/uL; Monocyte% 10.2 % (0-10); NRBC Flagged by Analyzer 0 % (0-5); Neutrophil # 5.33 X10^3/uL (2.7-7.7); Neutrophil % 59.5 % (47-70); POSITIVE MORPHOLOGY YES; Platelet Count 129 K/mm3 (150-450); RBC Distribution Width CV 12.9 % (11.6-14.6); RBC Distribution Width SD 43.3 fl (35.1-43.9); Red Blood Count 4.97 M/mm3 (4.6-6.2)
[2024-09-22 12:13] LABS: Differential Indicated SCAN CRITERIA MET
[2024-09-22 12:19] VITALS: BP 118/65; PULSE 73; RESP 22; O2SAT 95; BMI 23.1
[2024-09-22 12:21] LABS: Anion Gap 5 (5-15); BUN 13 mg/dL (7-18); Calcium,Total 9.2 mg/dL (8.5-10.1); Chloride 103 mmol/L (98-107); Creatinine, Serum 0.87 mg/dL (0.70-1.30); EST Glomerular Filtration Rate 93 mL/min (>60); Est Glom Filt Rate - Afr Amer 113 mL/min (>60); Estimated Creatinine Clearance 90.43 ml/min; Glucose 100 mg/dL (74-106); Potassium 4.2 mmol/L (3.5-5.1); Sodium Level 135 mmol/L (136-145)
--- OUTSIDE RECORDS SUMMARY | 2024-09-22 12:45 | XMS RPT_ITS | CCD ---
Author Organization [facility] Care Team Providers Care Endocrinology Physician Name Role Phone PHYSICIAN, NONE Primary Care Physician Unavailab le PHYSICIAN, NONE Primary Care Unavailable DR KEV HARDIN DO Attending Unavailable Unavailable Primary Care Provider Unavailabl e BRANDY GILL Attending Unavailable BRANDY GILL Referring Unavailable BRANDY GILL Referring Unavailable BRANDY GILL Attending Unavailable Unavailable Primary Care Provider Unavailabl e Medications Current Medications Medication Drug Class(es) Dates Sig (Normalized) Sig (Original) acetaminophen 325 mg / HYDROcodone bitartrate 5 mg oral tablet (1 source) Opioid Agonist Start: 01-20-2023 End: 01-23-2023 take 1 tablet by mouth every six hours as needed for pain [place] 325- 5 mg oral tablet Dose = 1 tab(s), Oral, q6h, PRN as needed for pain, X 3 day(s), # 12 tab(s), 0 Refill(s), Knee pain, 79.5 Start Date: 01/20/23 Stop Date: 01/23/23 Status: Ordered Completed/Discontinued Medications Medication Drug Class(es) Dates Sig (Normalized) Sig (Original) albuterol 0.83 mg/ml inhalation solution (5 sources) beta2-Adrenergic Agonist Start: 02-28-2021 take 2.5 mg by inhalation every four hours as needed albuterol (PROVENTIL) 2.5 mg /3 mL (0.083 %) nebulizer solution Use 3 mL via nebulizer every 4 hours as needed for Wheezing/Shortnes s of Breath. Use over 5-15minutes. 1 Package 0 02/28/2021 Active Start: 10-07-2019 take 1 puff(s) by in halation four times daily as needed for wheezing ProAir HFA MDI (90 mcg/inh) inhalation aerosol 1 puff(s), Inhalation, QID, PRN Shortness of breath or wheezing, # 8.5 gram(s), 0 Refill(s) Start Date: 10/07/19 Status: Ordered Start: 04-21-2014 End: 08-01-2021 take 2 puff(s) by inhalation every four hours as needed for wheezing albuterol HFA 90 mcg/actuation inhaler Indications: Bronchitis , Tobacco use Inhale 2 Puffs as instructed every 4 hours as needed for Wheezing/Shortness of Breath. With spacer please. 1 Inhaler 0 04/21/2014 08/01/2021 Discontinued (Course of therapy completed) Comment on above: Use 3 mL via nebuliz er every 4 hours as needed for Wheezing/Shortness of Breath. Use over 5-15minutes. benzonatate 100 mg oral capsule (1 source) Non-narcotic Antitussive Start: 018 End: take 1 capsule by mouth three times daily as needed benzonatate (TESSALON PERLE) 100 mg capsule Indications: Bronchitis Take 1-2 capsules by mouth three times daily as needed. 30 capsule 12/09/2017 08/01/2021 Discontinued (Course of therapy completed) betamethasone 3 mg/ml / betamethasone acetate 3 mg/ml injectable suspension (1 source) Corticosteroid Start: 023 End: 023 betamethasone acetate-betamethaso ne sodium phosphate 6 mg injection (CELESTONE) Start: 02-06-2023 End: 02-06-2023 betamethasone acetate-betame thasone sodium phosphate 6 mg injection (CELESTONE) 120 actuat budesonide 0.16 mg/actuat / formoterol fumarate 0.0048 mg/actuat / glycopyrrolate 0.009 mg/actuat metered dose inhaler (3 sources) Corticosteroid, beta2-Adrenergic Agonist Start: 12-03-2022 take 2 puff(s) by inhalation once daily BREZTRI AEROSPHERE 160-9-4.8 mcg/actuation HFA aerosol inhaler Inhale 2 Puffs as instructed once daily. 0 12/03/2022 Active Comment on above: Inhale 2 Puffs as in structed once daily. etodolac 400 mg oral tablet (3 sources) Nonsteroidal Anti-inflammatory Drug Start: 02-06-2023 take 1 tablet by mouth twice daily etodolac (LODINE) 400 mg tablet Take 1 tablet by mouth twice daily. 60 tablet 1 02/06/2023 Active Comment on above: Take 1 tablet by noe th twice daily. 10 ml lidocaine hydrochloride 10 mg/ml injection (2 sources) Antiarrhythmic, Amide Local Anesthetic Start: 02-06-2023 End: 02-06-2023 lidocaine (PF) 10 mg/mL (1 %) 4 mL injection (XYLOCAINE) Start: 01-20-2023 End: 01-27-2023 Lidoderm 5% topical patch Ap ply 1 patch(es), Topical, Daily, X 7 day(s), # 7 patch(es), 0 Refill(s), 79.5 Start Date: 01/20/23 Stop Date: 01/27/23 Status: Ordered predniSONE 10 mg oral tablet (1 source) Start: 04-21-2014 End: 08-01-2021 predniSONE 10 mg tablet Indications: Bronchitis Take 4 tabs daily for 3 days, then 2 tabs daily for 3 days, then 1 tab daily for 3 days with food. 21 tablet 0 04/21/2014 08/01/2021 Discontinued (Course of therapy completed) Problems Active Problems Problem Classification Problem Date Documented Da te Episodic/Chronic Joint disorders and dislocations; trauma-related (1 source) Tear of medial meniscus of knee; Translations: [Other tear of medial meniscus, current injury, right knee, initial encounter] Episodic Other lower respiratory disease (1 source) Cough; Translations: [Cough] 02-28-2021 Episodic Other non-traumatic joint disorders (1 source) Pain in unspecified knee; Translations: [Pain of joint of knee] Onset: 01-20-2023 Episodic Other non-traumatic joint disorders (1 source) Pain in right knee; Translations: [Pain in joint, lower leg] Episodic Past or Other Problems Problem Classification Problem Date Documented Da te Episodic/Chronic Other connective tissue disease (4 sources) Calcaneal spur; Translations: [Calcaneal spur, unspecified foot] Onset: 12-24-2010 12-24-2010 Episodic Results Test Name Value Interpretation Reference Range [facility] [place] [facility] RON ORTEGA ([id number]) 1955 M Date Time Provider Department 03/04/23 BRANDY GILL During your visit today, we recorded the following information about you: Betty Mckeon RN 03/04/2023 12:54 PM Signed Ron called. He would like the results of his MRI that was completed last week. Please call [phone]-he is having problems with his phone. ISHAN Manning MD 03/04/2023 1:53 PM Signed We typically ask patients to schedule their follow up right after the MRI so we can discuss. He has an insufficiency fracture which is somewhat like a stress fracture of the inner portion of the end of the thigh bone (femur). That would likely benefit from an offloader brace and even some crutches/walker to take some weight off the area while it's healing. Happy to see him in the office to review and show him the results. He does not need to schedule the PT as we had discussed in the office. If he feels a brace or crutches are necessary at this point in time, we can arrange to get those in the office. MD Mariah Pack Oh 03/04/2023 3:14 PM Signed I called and spoke with patient. Message from Dr. Gill given and patient states that he would not be able to work with crutches or a walker and he had a brace that he bought from the [employer] that hindered squatting, which he does a lot of repeatedly at work so he stopped wearing it. Patient declined scheduling a follow up and states he will call office back if he needs to schedule. Allergies As of Date: 03/04/2023 (No Known Allergies) Date Reviewed: 02/06/2023 Reviewed by: Chantelle Adair RN - Fully Assessed Reason for Visit: Results [95] Cmt: MRI results Prescriptions as of 03/04/2023 - LUCIR[employer]icon Media 160-9-4.8 mcg/actuation HFA aerosol inhaler Inhale 2 Puffs as instructed once daily. - etodolac (LODINE) 400 mg tablet Take 1 tablet by mouth twice daily. - albuterol (PROVENTIL) 2.5 mg /3 mL (0.083 %) nebulizer solution Use 3 mL via nebulizer every 4 hours as needed for Wheezing/Shortness of Breath. Use over 5-15minutes. Problem List As Of Date 03/04/2023 Noted Resolved Calcaneal spur [M77.30] 12/24/2010 Encounter Status:Closed by MARIAH STONE MA on 03/04/23 Normal [facility] MRI KNEE WO IVCON RTon 02-25 MRI KNEE WO IVCON RT * * *Final Report* * * DATE OF EXAM: Feb 25 2023 10:07AM [place] 0213 - MRI KNEE WO IVCON RT / PROCEDURE REASON: Tear of medial meniscus of right knee, current, unspecified tear type, initial e * * * * Physician Interpretation * * * * EXAMINATION: MRI RIGHT KNEE WITHOUT CONTRAST CLINICAL HISTORY: Tear of medial meniscus of right knee, current, unspecified tear type, initial encounter TECHNIQUE: Routine non-contrast MRI of the knee MQ: [id number] COMPARISON: Radiographs dated 01/20/2023 RESULT: MENISCI: Medial Meniscus: Degenerative changes without a tear in the body with inner margin fraying. Lateral Meniscus: Intact. LIGAMENTS: ACL: Intact PCL: Intact MCL: Intact LCL Complex: Intact CARTILAGE: Medial Femoral Condyle: Moderate sized area(s) of low grade (less than 50% thickness) partial thickness cartilage loss and or fissuring Medial Tibial Plateau: Small area(s) of low grade (less than 50% thickness) partial thickness cartilage loss and or fissuring Lateral Femoral Condyle: Small area(s) of low grade (less than 50% thickness) partial thickness cartilage loss and or fissuring Lateral Tibial Plateau: Small area(s) of low grade (less than 50% thickness) partial thickness cartilage loss and or fissuring Patella: Moderate sized area(s) of predominantly high grade (greater than 50% thickness) cartilage loss and or fissuring with smaller area(s) of full thickness cartilage loss and or fissuring and reactive subchondral bone marrow changes. Trochlea: Moderate sized area(s) of predominantly low grade (less than 50% thickness) cartilage loss and or fissuring with smaller area(s) of high grade (greater than 50% thickness) cartilage loss and or fissuring TENDONS: The distal quadriceps and patellar tendons are intact. The popliteus tendon is intact. BONES AND MARROW: Subchondral insufficiency fracture in the medial femoral condyle weightbearing area with adjacent bone marrow edema. MUSCLES: Mild fatty changes. JOINT FLUID AND SYNOVIUM: Small joint effusion. No synovitis. No Lopez's cyst. OTHER: No other significant abnormality identified. Localizer images: No additional findings. IMPRESSION: MEDIAL FEMORAL CONDYLE SUBCHONDRAL INSUFFICIENCY FRACTURE. TRICOMPARTMENTAL DEGENERATIVE ARTHRITIS, MORE ADVANCED AT THE PATELLOFEMORAL COMPARTMENT. Surveillance Camera Technician: ALEXANDRA Transcribe Date/Time: Feb 25 2023 10:35A Dictated by : BETTY JACOME MD This examination was interpreted and the report reviewed and electronically signed by: BETTY JACOME MD on Feb 25 2023 10:42AM EST [id number] Normal [facility] No Panel Informationon 02-25 [facility] CNOVon 02-06-2023 CNOV Office Visit (ORTHWS ) RON ORTEGA ([id number]) 1955 M Date Time Provider Department 02/06/23 2:45 PM BRANDY GILL During your visit today, we recorded the following information about you: Brandy Gill MD 03/17/2023 7:54 AM Signed Patient presents with: Right Knee - New, Knee Pain Brandy Gill MD Department of Orthopaedics Orthopaedics [address] [facility] [address] Dept: [phone] Dept February 06, 2023 CHIEF COMPLAINT: New and Knee Pain of the Right Knee HPI Patient has been having more troubles with the right knee. Difficulty with some ADLs. Trouble at work with certainly squatting and stooping. Pain on the inner portion of the knee. Denies any specific injury nor trauma. Had some x-rays done which were relatively normal ASSESSMENT: M25.561 Acute pain of right knee (primary encounter diagnosis) S83.241A Tear of medial meniscus of right knee, current, unspecified tear type, initial encounter PLAN: Based on his clinical exam findings and x-rays, my recommendation would be for an MRI as this appears to be a bit different than just some mild osteoarthritic pain. FOLLOW UP INSTRUCTIONS: We will see him after imaging. Mr. Ron Ortega was advised as to contrast therapies and/or to take analgesics/anti-inflam matories as needed and all contraindications were reviewed. OBJECTIVE: Mr. Ron Ortega is a pleasant 67 year old in no apparent distress. Gen:There were no vitals taken for this visit. nl development, non obese, no deformities ENT: Normocephalic, normal hearing, moist mucosa CV: Pulses:DP/PT= 2+ and symmetric, capillary refill < 2 secs, no peripheral edema/varicosities Skin: no rash, bruising or lesions. Good turgor. Psych: cooperative and appropriate, alert and oriented x 3, good mood and affect. Musculoskeletal: Patient walks with antalgia, normal station. Hip motion without pain. Knee with scant effusion. Patella tracks normally. There is no patellar crepitance. No pain along the medial or lateral facets. Range of motion 0-130 degrees. Positive medial, without lateral joint line pain on palpation, distal femoral condyle tenderness as well. Ligamentous exam stable on varus and valgus stress testing at 0 and 30 degrees. Mata's examination is negative. Posterior drawer is negative. Negative McMurrays, without palpable click. Extremity is warm and well perfused. Sensation is grossly intact to light touch, subjectively. Large Joint Arthro/Inj: R knee joint Informed Consent Consent Obtained: Verbal [place] Protocol A moment to CARE was completed. SIGN IN Personnel directly involved with the procedure wore the appropriate PPE. Special Equipment: N/A Patient/Surrogate Stated/Verified: Patient name, Date of , Relevant allergies and Intended procedure TIME OUT Intended patient and procedure match the source document(s). Consent documented and matches the intended procedure. Relevant labs, photos, and/or imaging studies have been reviewed. Correct side/site marked and visible. Medications required for procedure verified. No fire risk assessment and interventions applicable. No implant(s) inserted. 02/06/2023 3:11 PM The procedure site was prepped in the usual sterile fashion. Site: R knee joint Medications: 6 mg betamethasone acetate-betamethasone sodium phosphate 6 mg/mL Anesthetics: 4 mL lidocaine (PF) 10 mg/mL (1 %) Outcome: Tolerated well, no immediate complications Post-injection instructions were reviewed with the patient and the patient voiced understanding of these instructions. SIGN OUT No specimen collected. All instruments, equipment, possible retained foreign bodies accounted for. Post-procedure follow-up management communicated and Plan of Care Visit completed when applicable IMAGIN views outside facility with normal images, very mild medial narrowing, ensthephytes on patella. Supporting Subjective Information Below: Past Medical History: PAST MEDICAL HISTORY Diagnosis Date Unspecified asthma(493.90) Past Surgical History: History reviewed. No pertinent surgical history. Family History: No family history on file. Social History: Social History Tobacco Use Smoking status: Every Day Years: 1.00 Types: Cigarettes Smokeless tobacco: Never Medications: Current Outpatient Medications Medication Sig albuterol (PROVENTIL) 2.5 mg /3 mL (0.083 %) nebulizer solution Use 3 mL via nebulizer every 4 hours as needed for Wheezing/Shortness of Breath. Use over 5-15minutes. BREZTRI AEROSPHERE 160-9-4.8 mcg/actuation HFA aerosol inhaler Inhale 2 Puffs as instructed once daily. No current facility-administered medications for this visit. Allergies: Patient has no known allergies. ROS: General (negative for fatigue, malaise, weight loss/gain) HEENT (negative (more content not included)... Normal [facility] XR KNEE THREE VIEWS RIGHTon 01-20-2023 XR KNEE THREE VIEWS RIGHT ORIGINAL EXAMINATION: THREE XRAY VIEWS OF THE RIGHT KNEE 01/20/2023 7:40 pm COMPARISON: None. HISTORY: ORDERING SYSTEM PROVIDED HISTORY: Reason for Exam: pain FINDINGS: No acute fracture or dislocation is identified. Slight medial femorotibial joint space narrowing. Lateral femorotibial and patellofemoral compartment joint spaces are preserved. Question trace volume effusion. Fabella. Patellar and quadriceps enthesophytes are noted. IMPRESSION: No acute osseous abnormality. Minimal medial femorotibial compartment osteoarthrosis. Question trace volume effusion. I have personally reviewed the images of this examination and agree with the resident's findings and interpretation. Interpreted by: Tavo Parker DO Preliminary Report By: Henny Henao Electronically signed By Tavo Parker DO Dictated Date: 01/20/2023 7:43:41 PM Prelim Date: 01/20/2023 7:45:42 PM Sign Date: 01/20/2023 7:51:13 PM Ordering Provider: KEVAnn HARDIN [facility] ([place]) XR Chest PA and Lateralon IMPRESSION: No acute radiographic abnormality. Surveillance Camera Technician: PSCKurt Transcribe Date/Time: Feb 28 2021 8:07P Dictated by : JAN WALL MD This examination was interpreted and the report reviewed and electronically signed by: JAN WALL MD on Feb 28 2021 8:07PM [facility] DIVISION OF RADIOLOGY * * *Final Report* * * DATE OF EXAM: Feb 28 2021 7:47PM [id number] - XR CHEST 2V FRONTAL/LAT / PROCEDURE REASON: Cough * * * * Physician Interpretation * * * * EXAMINATION: CHEST RADIOGRAPH (2 VIEW FRONTAL & LATERAL) CLINICAL HISTORY: Cough MQ: XC2_6 EXAM DATE/TIME: 02/28/2021 7:47 PM COMPARISON: 01/23/2020 RESULT: Lines, tubes, and devices: None. Lungs and pleura: No consolidation. No lung mass. No pleural effusion. No pneumothorax. Cardiomediastinal silhouette: Normal cardiomediastinal silhouette. Bones and soft tissues: Unremarkable. DIVISION OF RADIOLOGY Provider, [facility] - 02/28/2021 * * *Final Report* * * DATE OF EXAM: Feb 28 2021 7:47PM WOX [id number] - XR CHEST 2V FRONTAL/LAT / PROCEDURE REASON: Cough * * * * Physician Interpretation * * * * EXAMINATION: CHEST RADIOGRAPH (2 VIEW FRONTAL & LATERAL) CLINICAL HISTORY: Cough MQ: XC2_6 EXAM DATE/TIME: 02/28/2021 7:47 PM COMPARISON: 01/23/2020 RESULT: Lines, tubes, and devices: None. Lungs and pleura: No consolidation. No lung mass. No pleural effusion. No pneumothorax. Cardiomediastinal silhouette: Normal cardiomediastinal silhouette. Bones and soft tissues: Unremarkable. IMPRESSION IMPRESSION: No acute radiographic abnormality. Surveillance Camera Technician: ALEXANDRA Transcribe Date/Time: Feb 28 2021 8:07P Dictated by : JAN WALL MD This examination was interpreted and the report reviewed and electronically signed by: JAN WALL MD on Feb 28 2021 8:07PM EST [facility] Radiology Study observation (narrative) [facility] XR Chest PA and LateralOrder ed By: [facility] Provider on 02-28-2021 [facility] Large Joint Arthro/Inj: R kn ee joint [facility] Vital Signs Date Time Vital Sign Value Performing Clinician Shakiri golden 01-20-2023 20:12-0500 Diastolic Blood Pressure Non-Invasive [address] H[address] DO [facility] 01-20-2023 20:12-0500 Heart rate 75 /min DR KEV HARDIN DO [facility] 01-20-2023 20:12-0500 Respiratory rate 18 /min DR KEV HARDIN DO [facility] 01-20-2023 20:12-0500 Systolic Blood Pressure Non-Invasive [address]EV HARDIN DO [facility] 01-20-2023 18:23-0500 Body temperature 97.7 [degF] DR KEV HARDIN DO [facility] 01-20-2023 18:23-0500 Diastolic Blood Pressure Non-Invasive [address]EV HARDIN DO [facility] 01-20-2023 18:23-0500 Heart rate 95 /min DR KEV HARDIN DO [facility] 01-20-2023 18:23-0500 Respiratory rate 20 /min DR KEV HARDIN DO [facility] 01-20-2023 18:23-0500 Systolic Blood Pressure Non-Invasive [address] HARDIN DO [facility] Encounters Encounter Date Encounter Type Care Provider Facility Start: 03-24-2023 End: 03-24-2023 ambulatory BRANDY GILL Facility:[facility] Start: 03-04-2023 Telephone encounter Brandy hill MD Work Phone: Orthopaedics Comment on above: Results (MRI results ) Start: 02-25-2023 End: 02-25-2023 ambulatory BRANDY GILL Facility:[facility] Start: 02-25-2023 End: 02-25-2023 Subsequent hospital visit by physician Mri Radio [facility] Wstr (I-Stat/1.5t) Work Phone: Radiology Comment on above: Tear of medial menis cus of right knee, current, unspecified tear type, initial encounter [S83.241N] Start: 02-06-2023 End: 02-06-2023 ambulatory BRANDY GILL Facility:[facility] Start: 02-06-2023 End: 02-06-2023 Patient encounter procedure Brandy Gill MD Work Phone: Orthopaedics Comment on above: Acute pain of right knee (Primary Dx); Tear of medial meniscus of right knee, current, unspecified tear type, initial encounter Start: 01-20-2023 End: 01-20-2023 Emergency department patient visit NONE PHYSICIAN Facility:B Start: 01-20-2023 End: 01-20-2023 Emergency department patient visit DR KEV HARDIN DO [facility] Start: 02-28-2021 End: 02-28-2021 Subsequent hospital visit by physician Xr [facility] Rafat Work Phone: Radiology Comment on above: Cough [R05] Procedures Date Procedure Procedure Detail Performing Clinician Start: 02-25-2023 Mri any jt lower ext rem w/o contrast matrl Brandy Gill MD Work Phone: Start: 02-06-2023 Arthrocentesis aspir &/inj major jt/bursa w/o us Brandy Gill MD Work Phone: Start: 02-28-2021 Radiologic exam ches t 2 views Jessica Carrillo PA-C Work Phone: Plan of Treatment Date Care Activity Detail Author Start: 2032 RSV Vaccine (1 - 1-d ose 75+ series) RSV Vaccine (1 - 1-dose 75+ series) [facility] Start: 08-01-2024 Covid-19 Vaccine () Covid-19 Vaccine () [facility] Start: 08-01-2024 Influenza vaccination Influenza Vacc ine (#1) [facility] Start: 12-01-2023 Advance Directive Discussion Advance Directive Discussion [facility] Start: 08-01-2023 Influenza vaccination C [place] Start: 12-01-2022 ADVANCE DIRECTIVE DISCUSSION ADVANCE DIRECTIVE DISCUSSION [facility] Start: 12-01-2022 DEPRESSION ASSESSMENT DEPRESSION ASS ESSMENT [facility] Start: 2017 RSV Vaccine (1 - 1-d ose 60+ series) RSV Vaccine (1 - 1-dose 60+ series) [facility] Start: 2012 PROSTATE CANCER SCRE ENING DISCUSSION PROSTATE CANCER SCREENING DISCUSSION [facility] Start: 2012 Prostate specific an tigen measurement Prostate Cancer Screening Discussion [facility] Start: 2007 SHINGRIX VACCINE (1 of 2) SHINGRIX V ACCINE (1 of 2) [facility] Start: 2002 COLOGUARD (FIT-DNA) COLOGUARD (FIT-D NA) [facility] Start: 2002 Colonoscopy COLONOSCOPY [facility] Start: 2002 COLORECTAL CANCER SCREENING COLORECTAL CANCER SCREENING [facility] Start: [address] COLONOGRAPHY [facility] Start: 2002 DIABETES SCREEN DIABETES SCREEN [facility] Start: 2002 Diabetes Screening Diabetes Screenin g [facility] Start: 2002 FECAL OCCULT BLOOD FECAL OCCULT BLOO D [facility] Start: 2002 Screening for malign ant neoplasm of colon [facility] Start: 2002 SIGMOIDOSCOPY SIGMOIDOSCOPY [facility] Start: 1992 Lipid 1996 panel - S jasmina or Plasma Lipid Screening [facility] Start: 1992 Lipid panel Lipid Screening [facility] Start: 1992 LIPID SCREEN LIPID SCREEN [facility] Start: 1976 Urine microalbumin profile [facility] Start: 1975 Anxiety Screening Anxiety Screening [facility] Start: 1975 Depression Screening Depression Scre ening [facility] Start: 1975 HEPATITIS C SCREENING HEPATITIS C [facility] Start: 1975 Hepatitis C screening Hepatitis C [facility] Start: 1975 HIV SCREENING HIV SCREENING [facility] Start: 1963 Pneumococcal Vaccine : 65+ (1 - PCV) Pneumococcal Vaccine: 65+ (1 - PCV) [facility] Start: 1963 Pneumococcal Vaccine : 65+ (1 of 2 - PCV) Pneumococcal Vaccine: 65+ (1 of 2 - PCV) [facility] Start: 1963 PNEUMOCOCCAL: 65+ (1 - PCV) PNEUMOCOCCAL: 65+ (1 - PCV) [facility] Start: 1957 COVID-19 VACCINE (#1) COVID-19 VACCI NE (#1) [facility] Start: 1957 ABDOMINAL AORTIC ANE URYSM SCREENING ABDOMINAL AORTIC ANEURYSM SCREENING [facility] Start: 1957 Abdominal aortic ane urysm screening Abdominal Aortic Aneurysm Screening [facility] Clini c Payers Date Payer Category Payer Private Health Insurance [id number] 2020 Private Health Insurance RAJESH BARAKAT OAP [id number] 2020-Present [phone] [id number] [place] [id number] Open Access [id number] 1955 Unknown [id number] Social History Date Type Detail Facility Start: 02-20-2023 Tobacco smoking status Heavy t obacco smoker (finding) [facility] Sex Assigned At Male [facility] Start: 11-10-2017 Tobacco smoking stat us NHIS Smokes tobacco daily [facility] History of tobacco use Cigarette Smoker [facility] [place] Start: 11-10-2017 Tobacco use and exposure Smokeless tobacco non-user [facility] Start: 02-28-2021 End: 02-06-2023 Alcohol intake Not Asked [facility] Start: 1955 Sex Assigned At Not on file [facility] [place] Start: 11-07-2020 End: 02-06-2023 History of Social function [facility] Start: 11-07-2020 End: 02-06-2023 Tobacco use panel [facility] National Score (1-100), lower number is lower risk 63 [facility] Start: 01-29-2021 End: 02-28-2021 Exposure to SARS-CoV-2 (event) Not sure [facility] Functional Status Date Assessment Result Facility 01-20-2023 Functional Status Standard Safet y ID band on, Call device within reach, Bed in low position, Wheels locked, Upper/Half-Length side-rails up, Bedside Cart Locked, Safety level maintained [facility] Mental Status Date Assessment Result Facility 01-20-2023 Mental Status Orientation Oriented x 4 [facility] 01-20-2023 Mental Status [facility] Clinical Notes 02-28-2021 to 03-04-2023 Telephone Encounter - Mariah Stone Ma - 03/04/2023 3:10 PM EDTTelephone Encounter - Brandy Gill MD - 03/04/2023 1:49 PM EDTTelephone Encounter - Betty Mckeon RN - 03/04/2023 12:53 PM EDT Note Date & Type Note Facility 03-04-2023 Miscellaneous Notes I called and spoke with patient. Message from Dr. Gill given and patient states that he would not be able to work with crutches or a walker and he had a brace that he bought from the drugstore that hindered squatting, which he does a lot of repeatedly at work so he stopped wearing it. Patient declined scheduling a follow up and states he will call office back if he needs to schedule. We typically ask patients to schedule their follow up right after the MRI so we can discuss. He has an insufficiency fracture which is somewhat like a stress fracture of the inner portion of the end of the thigh bone (femur). That would likely benefit from an offloader brace and even some crutches/walker to take some weight off the area while it's healing. Happy to see him in the office to review and show him the results. He does not need to schedule the PT as we had discussed in the office. If he feels a brace or crutches are necessary at this point in time, we can arrange to get those in the office. Brandy Gill MD Ron called. He would like the results of his MRI that was completed last week. Please call [phone]-he is having problems with his phone. Betty Mckeon RN documented in this encounter [facility] 02-25-2023 Note HNO ID: [id number] Author: RT Cliff(R) Service: ? Author Type: Technologist Type: Progress Notes Filed: 02/25/2023 9:40 AM Note Text: Radiology Service Progress Note PATIENT NAME: Ron Ortega DATE OF SERVICE: February 25, 2023 TIME: 9:39 AM PATIENT IDENTITY VERIFICATION COMPLETED USING TWO (2) IDENTIFIERS: Name and Date of confirmed by patient verbally. FALL SCREENING: Has the patient had 2 falls in the last year or 1 fall with injury or currently using an Ambulatory Assistive Device (Walker, Cane, Wheelchair, Crutches, etc.)? No PATIENT GENDER DATA: Male PATIENT RELEVANT IMPLANT DATA REVIEWED: Yes RADIOLOGY DEPARTMENT: MR; Exam(s) Completed: Lower MSK: Knee, right PERIPHERAL IV DATA: Not applicable SIGNED BY: RT Cliff(R) February 25, 2023 9:39 AM [facility] 02-25-2023 History of Presen t illness Narrative Radiology Service Progress Note PATIENT NAME: Ron Ortega DATE OF SERVICE: February 25, 2023 TIME: 9:39 AM PATIENT IDENTITY VERIFICATION COMPLETED USING TWO (2) IDENTIFIERS: Name and Date of confirmed by patient verbally. FALL SCREENING: Has the patient had 2 falls in the last year or 1 fall with injury or currently using an Ambulatory Assistive Device (Walker, Cane, Wheelchair, Crutches, etc.)? No PATIENT GENDER DATA: Male PATIENT RELEVANT IMPLANT DATA REVIEWED: Yes RADIOLOGY DEPARTMENT: MR; Exam(s) Completed: Lower MSK: Knee, right PERIPHERAL IV DATA: Not applicable SIGNED BY: RT Cliff(Bri) February 25, 2023 9:39 AM documented in this encounter [facility] 02-06-2023 Note HNO ID: [id number] Author: Brandy Gill MD Service: ? Author Type: Physician Type: Progress Notes Filed: 03/17/2023 7:54 AM Note Text: Patient presents with: Right Knee - New, Knee Pain Brandy Gill MD Department of Orthopaedics Orthopaedics [address] [place] [id number] Dept: [phone] Dept February 06, 2023 CHIEF COMPLAINT: New and Knee Pain of the Right Knee HPI Patient has been having more troubles with the right knee. Difficulty with some ADLs. Trouble at work with certainly squatting and stooping. Pain on the inner portion of the knee. Denies any specific injury nor trauma. Had some x-rays done which were relatively normal ASSESSMENT: M25.561 Acute pain of right knee (primary encounter diagnosis) S83.241A Tear of medial meniscus of right knee, current, unspecified tear type, initial encounter PLAN: Based on his clinical exam findings and x-rays, my recommendation would be for an MRI as this appears to be a bit different than just some mild osteoarthritic pain. FOLLOW UP INSTRUCTIONS: We will see him after imaging. Mr. Ron Ortega was advised as to contrast therapies and/or to take analgesics/anti-inflammatories as needed and all contraindications were reviewed. OBJECTIVE: Mr. Ron Ortega is a pleasant 67 year old in no apparent distress. Gen:There were no vitals taken for this visit. nl development, non obese, no deformities ENT: Normocephalic, normal hearing, moist mucosa CV: Pulses:DP/PT= 2+ and symmetric, capillary refill < 2 secs, no peripheral edema/varicosities Skin: no rash, bruising or lesions. Good turgor. Psych: cooperative and appropriate, alert and oriented x 3, good mood and affect. Musculoskeletal: Patient walks with antalgia, normal station. Hip motion without pain. Knee with scant effusion. Patella tracks normally. There is no patellar crepitance. No pain along the medial or lateral facets. Range of motion 0-130 degrees. Positive medial, without lateral joint line pain on palpation, distal femoral condyle tenderness as well. Ligamentous exam stable on varus and valgus stress testing at 0 and 30 degrees. Mata's examination is negative. Posterior drawer is negative. Negative McMurrays, without palpable click. Extremity is warm and well perfused. Sensation is grossly intact to light touch, subjectively. Large Joint Arthro/Inj: R knee joint Informed Consent Consent Obtained: Verbal [place] Protocol A moment to CARE was completed. SIGN IN Personnel directly involved with the procedure wore the appropriate PPE. Special Equipment: N/A Patient/Surrogate Stated/Verified: Patient name, Date of , Relevant allergies and Intended procedure TIME OUT Intended patient and procedure match the source document(s). Consent documented and matches the intended procedure. Relevant labs, photos, and/or imaging studies have been reviewed. Correct side/site marked and visible. Medications required for procedure verified. No fire risk assessment and interventions applicable. No implant(s) inserted. 02/06/2023 3:11 PM The procedure site was prepped in the usual sterile fashion. Site: R knee joint Medications: 6 mg betamethasone acetate-betamethasone sodium phosphate 6 mg/mL Anesthetics: 4 mL lidocaine (PF) 10 mg/mL (1 %) Outcome: Tolerated well, no immediate complications Post-injection instructions were reviewed with the patient and the patient voiced understanding of these instructions. SIGN OUT No specimen collected. All instruments, equipment, possible retained foreign bodies accounted for. Post-procedure follow-up management communicated and Plan of Care Visit completed when applicable IMAGIN views outside facility with normal images, very mild medial narrowing, ensthephytes on patella. Supporting Subjective Information Below: Past Medical History: PAST MEDICAL HISTORY Diagnosis Date Unspecified asthma(493.90) Past Surgical History: History reviewed. No pertinent surgical history. Family History: No family history on file. Social History: Social History Tobacco Use Smoking status: Every Day Years: 1.00 Types: Cigarettes Smokeless tobacco: Never Medications: Current Outpatient Medications Medication Sig albuterol (PROVENTIL) 2.5 mg /3 mL (0.083 %) nebulizer solution Use 3 mL via nebulizer every 4 hours as needed for Wheezing/Shortness of Breath. Use over 5-15minutes. [employer] AEROSPHERE 160-9-4.8 mcg/actuation HFA aerosol inhaler Inhale 2 Puffs as instructed once daily. No current facility-administered medications for this visit. Allergies: Patient has no known allergies. ROS: General (negative for fatigue, malaise, weight loss/gain) HEENT (negative for headache, earache, recent vision changes, sinus pain, sore throat) Respiratory (no recent shortness of breath, hemoptysis) CV (negative for chest tightness, palpitations) Musculo (more content not included)... [facility] 02-06-2023 History of Presen t illness Narrative Associated Order(s): Large Joint Arthro/Inj: R knee joint Post-Procedure Diagnose(s): Acute pain of right knee Patient presents with: Right Knee - New, Knee Pain Brandy Gill MD Department of Orthopaedics Orthopaedics [address] [facility] [address] Dept: [phone] Dept February 06, 2023 CHIEF COMPLAINT: New and Knee Pain of the Right Knee HPI Patient has been having more troubles with the right knee. Difficulty with some ADLs. Trouble at work with certainly squatting and stooping. Pain on the inner portion of the knee. Denies any specific injury nor trauma. Had some x-rays done which were relatively normal ASSESSMENT: M25.561 Acute pain of right knee (primary encounter diagnosis) S83.241A Tear of medial meniscus of right knee, current, unspecified tear type, initial encounter PLAN: Based on his clinical exam findings and x-rays, my recommendation would be for an MRI as this appears to be a bit different than just some mild osteoarthritic pain. FOLLOW UP INSTRUCTIONS: We will see him after imaging. Mr. Ron Ortega was advised as to contrast therapies and/or to take analgesics/anti-inflammatories as needed and all contraindications were reviewed. OBJECTIVE: Mr. Ron Ortega is a pleasant 67 year old in no apparent distress. Gen:There were no vitals taken for this visit. nl development, non obese, no deformities ENT: Normocephalic, normal hearing, moist mucosa CV: Pulses:DP/PT= 2+ and symmetric, capillary refill < 2 secs, no peripheral edema/varicosities Skin: no rash, bruising or lesions. Good turgor. Psych: cooperative and appropriate, alert and oriented x 3, good mood and affect. Musculoskeletal: Patient walks with antalgia, normal station. Hip motion without pain. Knee with scant effusion. Patella tracks normally. There is no patellar crepitance. No pain along the medial or lateral facets. Range of motion 0-130 degrees. Positive medial, without lateral joint line pain on palpation, distal femoral condyle tenderness as well. Ligamentous exam stable on varus and valgus stress testing at 0 and 30 degrees. Mata's examination is negative. Posterior drawer is negative. Negative McMurrays, without palpable click. Extremity is warm and well perfused. Sensation is grossly intact to light touch, subjectively. Large Joint Arthro/Inj: R knee joint Informed Consent Consent Obtained: Verbal [place] Protocol A moment to CARE was completed. SIGN IN Personnel directly involved with the procedure wore the appropriate PPE. Special Equipment: N/A Patient/Surrogate Stated/Verified: Patient name, Date of , Relevant allergies and Intended procedure TIME OUT Intended patient and procedure match the source document(s). Consent documented and matches the intended procedure. Relevant labs, photos, and/or imaging studies have been reviewed. Correct side/site marked and visible. Medications required for procedure verified. No fire risk assessment and interventions applicable. No implant(s) inserted. 02/06/2023 3:11 PM The procedure site was prepped in the usual sterile fashion. Site: R knee joint Medications: 6 mg betamethasone acetate-betamethasone sodium phosphate 6 mg/mL Anesthetics: 4 mL lidocaine (PF) 10 mg/mL (1 %) Outcome: Tolerated well, no immediate complications Post-injection instructions were reviewed with the patient and the patient voiced understanding of these instructions. SIGN OUT No specimen collected. All instruments, equipment, possible retained foreign bodies accounted for. Post-procedure follow-up management communicated and Plan of Care Visit completed when applicable IMAGIN views outside facility with normal images, very mild medial narrowing, ensthephytes on patella. Supporting Subjective Information Below: Past Medical History: PAST MEDICAL HISTORY Diagnosis Date Unspecified asthma(493.90) Past Surgical History: History reviewed. No pertinent surgical history. Family History: No family history on file. Social History: Social History Tobacco Use Smoking status: Every Day Years: 1.00 Types: Cigarettes Smokeless tobacco: Never Medications: Current Outpatient Medications Medication Sig albuterol (PROVENTIL) 2.5 mg /3 mL (0.083 %) nebulizer solution Use 3 mL via nebulizer every 4 hours as needed for Wheezing/Shortness of Breath. Use over 5-15minutes. [employer] 160-9-4.8 mcg/actuation HFA aerosol inhaler Inhale 2 Puffs as instructed once daily. No current facility-administered medications for this visit. Allergies: Patient has no known allergies. ROS: General (negative for fatigue, malaise, weight loss/gain) HEENT (negative for headache, earache, recent vision changes, sinus pain, sore throat) Respiratory (no recent shortness of breath, hemoptysis) CV (negative for chest tightness, palpitations) Musculoskeletal (see HPI) Psych (no depression, anxiety) Brandy Gill MD documented in this encounter [facility] 01-20-2023 Hospital Discharg e instructions Patient Education 01/20/2023 18:48:34 R.I.C.E. RICE RICE stands for rest, ice, compression, and elevation. Doing these things helps limit pain and swelling after an injury. RICE also helps injuries heal faster. Use RICE for sprains, strains, and severe bruises or bumps. Follow the tips on this handout and begin RICE as soon as possible after an injury. Rest Pain is your body s way of telling you to rest an injured area. Whether you have hurt an elbow, hand, foot, or knee, limiting its use will prevent further injury and help you heal. Ice Applying ice right after an injury helps prevent swelling and reduce pain. Don t place ice directly on your skin. Wrap a cold pack or bag of ice in a thin cloth. Place it over the injured area. Ice for 10 minutes every 3 hours. Don t ice for more than 20 minutes at a time. Compression Putting pressure (compression) on an injury helps prevent swelling and provides support. Wrap the injured area firmly with an elastic bandage. If your hand or foot tingles, becomes discolored, or feels cold to the touch, the bandage may be too tight. Rewrap it more loosely. If your bandage becomes too loose, rewrap it. Do not wear an elastic bandage overnight. Elevation Keeping an injury elevated helps reduce swelling, pain, and throbbing. Elevation is most effective when the injury is kept elevated higher than the heart. Call your healthcare provider if you notice any of the following: Fingers or toes feel numb, are cold to the touch, or change color. Skin looks shiny or tight. Pain, swelling, or bruising worsens and is not improved with elevation. 6266-2538 [employer]. [address] [place] [address]. All rights reserved. This information is not intended as a substitute for professional medical care. Always follow your healthcare professional's instructions. Follow Up Care 01/20/2023 18:21:36 With:KEENA MORAN MD, Orthopedic Address: [address] [place] [address], [address] [facility] [place] [address] [phone] When:2-[address] [facility] 01-20-2023 Note Discharge Instructions Thank you for allowing [facility] to assist you with your healthcare needs. The following is important discharge information regarding your hospital visit. Diagnosis from Today's Visit Knee pain Leg pain-swelling What to Do Next Instructions from Your Care Team No qualifying data available. Post Acute Orders No qualifying data available. You Need to Schedule the Following Appointments Follow Up with KEENA MORAN MD, Orthopedic When Within 2-4 days Where: [address], [address] [facility] [place] [address]- [phone] Allergies NKA Medications Please ask your primary doctor or pharmacist before taking any other medication not listed, including over the counter drugs, herbal medications, vitamins and or supplements as they may interact with your home medications. What How Much When Why Instructions Last Dose New lidocaine topical (Lidoderm 5% topical patch) 1 patch(es) Topical Every day Duration: 7 Days Printed Prescription New traMADol (traMADol 50 mg oral tablet) 1 tab(s) by mouth Every 12 hours Knee pain Duration: 3 Days Printed Prescription Unchanged albuterol (ProAir HFA MDI (90 mcg/ inh) inhalation aerosol) 1 puff(s) by inhalation Four (4) times a day as needed for Shortness of breath or wheezing Please take this list to your next doctor s visit. Bring all medications you take, including over the counter medications, herbals and other supplements with you to your doctor s visit. Patients and families are reminded to discard old lists and to update any records with all medication providers or retail pharmacies. Education Materials RICE RICE stands for rest, ice, compression, and elevation. Doing these things helps limit pain and swelling after an injury. RICE also helps injuries heal faster. Use RICE for sprains, strains, and severe bruises or bumps. Follow the tips on this handout and begin RICE as soon as possible after an injury. Rest Pain is your body s way of telling you to rest an injured area. Whether you have hurt an elbow, hand, foot, or knee, limiting its use will prevent further injury and help you heal. Ice Applying ice right after an injury helps prevent swelling and reduce pain. Don t place ice directly on your skin. Wrap a cold pack or bag of ice in a thin cloth. Place it over the injured area. Ice for 10 minutes every 3 hours. Don t ice for more than 20 minutes at a time. Compression Putting pressure (compression) on an injury helps prevent swelling and provides support. Wrap the injured area firmly with an elastic bandage. If your hand or foot tingles, becomes discolored, or feels cold to the touch, the bandage may be too tight. Rewrap it more loosely. If your bandage becomes too loose, rewrap it. Do not wear an elastic bandage overnight. Elevation Keeping an injury elevated helps reduce swelling, pain, and throbbing. Elevation is most effective when the injury is kept elevated higher than the heart. Call your healthcare provider if you notice any of the following: Fingers or toes feel numb, are cold to the touch, or change color. Skin looks shiny or tight. Pain, swelling, or bruising worsens and is not improved with elevation. 3096-6905 [employer]. [address] [place] [address]. All rights reserved. This information is not intended as a substitute for professional medical care. Always follow your healthcare professional's instructions. Additional Information VACCINATE! IT SAVES LIVES! Members of the community who have not yet received the COVID-19 vaccine and would like to receive it can visit one of [facility] vaccine clinics. There are many vaccine clinic locations within the [facility]. For locations and available times, please visit [email or web address] [email or web address] It is important to note that some COVID mobile vaccine clinics are held outdoors and may be canceled in rainy or stormy conditions. To learn more about pediatric vaccinations (ages 5-11), we invite you to visit the [facility] webpage. [email or web address].[email or web address].org/p ages/[email or web address]-Jlskb-Gaptjhinluz-Freq bwkrnl-Qklow-Txrvmjtyn.html To learn more about the COVID-19 vaccine, we invite you to visit the CDC website for a list of frequently asked questions. https://www.cdc.gov/coronavirus/ 2019-ncov/vaccines/faq.html [facility] Patient Portal Access Instructions: Stay connected with your healthcare team and access your personal medical information anytime with the [facility] Patient Portal. If you would like a full copy of your medical records please contact the [facility] Medical Records Department Friday through Friday between 8a.m. and 4:30p.m. Please follow the directions below to access the portal: 1.Access the email account you provided upon registration to the hospital.2.Look for an invitation email from [facility].3.Open the email and access the invitation link: Accept Invitation to [facility]4.Fill in the required murrieta to create your account. Sign into www.[email or web address] with your username and password that you created in the above steps to stay up to date. You can then view a summary of results, a summary of your visits, and the ability to download your summaries to your computer or send the information securely to a physician. Remember that your healthcare information is confidential, so carefully consider who you will allow to register on the [email or web address] Patient Portal for access to your information. You can also access the [email or web address] Patient Portal on the [employer] bre. Simply click on Health Records under Health Data and then click on the [employer] logo. HOW TO SAFELY DISPOSE OF PRESCRIPTION MEDICATIONS Please use one of the following methods to safely dispose of your unused medications. 1.Use a drug disposal kit: the drug disposal pouch allows you to safely discard your old and unused drugs. Ask your nurse to give you one when you are discharged.2.Visit a local take-back location: Many local pharmacies and police departments have programs that collect old and unwanted prescription drugs. Call your local pharmacy or go to http://[employer]is Parenting/1X0Lm4u to find one close to you.3.Make use of household items: Use cat litter or old coffee grounds to dispose medications if other options are not available. Mix your drugs with these household products, seal them in an airtight container and throw it into the garbage. Call [facility]: [phone] to be sure your drugs can be disposed of in this way. Some medicines may require a different approach.4.Never flush your medications down the toilet. IF YOU HAVE BEEN PRESCRIBED AN OPIOIDS FOR PAIN If you have been prescribed an opioid (such as hydrocodone, oxycodone or morphine), it is critical to understand the possible side effects and risks of opioid pain medications. Even when taken as directed, opioids can have several side effects including: Tolerance, meaning you might need to take more of a medication for the same pain relief. Nausea, vomiting and/or constipation. Sleepiness, dizziness, dry mouth, confusion, depression or itching. Physical dependence, meaning you have withdrawal symptoms when a medication is stopped ? this can develop within a few days. KNOW YOUR RESPONSIBILITIES It is important to know exactly how much and how often to take the opioid pain medications you are prescribed. Never take opioids in higher amounts or more often than prescribed. Do not combine opioids with alcohol or other drugs that cause drowsiness, such as benzodiazepines, also known as benzos, including diazepam and alprazolam, muscle relaxants or sleep aids. Never sell or share prescription opioids. This is illegal. Store opioids in a secure place and out of reach of others (including children, family, friends and visitors). The last page(s) of this document has been signed and retained as a CHART COPY Signatures Patient Education Materials R.I.C.E. Medication Leaflets My discharge plan and instructions have been reviewed and explained to me and I,RON ROTEGA understand my current condition and have read and understand these discharge instructions. I have received a written copy of the plan/instructions. If I have questions, I am aware that I should contact my doctor. 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 01-20-2023 Note ORIGINAL EXAMINATION: THREE XRAY VIEWS OF THE RIGHT KNEE 01/20/2023 7:40 pm COMPARISON: None. HISTORY: ORDERING SYSTEM PROVIDED HISTORY: Reason for Exam: pain FINDINGS: No acute fracture or dislocation is identified. Slight medial femorotibial joint space narrowing. Lateral femorotibial and patellofemoral compartment joint spaces are preserved. Question trace volume effusion. Fabella. Patellar and quadriceps enthesophytes are noted. IMPRESSION: No acute osseous abnormality. Minimal medial femorotibial compartment osteoarthrosis. Question trace volume effusion. I have personally reviewed the images of this examination and agree with the resident's findings and interpretation. Interpreted by: Tavo Parker DO Preliminary Report By: Henny Henao Electronically signed By Tavo Parker DO Dictated Date: 01/20/2023 7:43:41 PM Prelim Date: 01/20/2023 7:45:42 PM Sign Date: 01/20/2023 7:51:13 PM Ordering Provider: [facility] 01-20-2023 Note ORIGINAL EXAMINATION: THREE XRAY VIEWS OF THE RIGHT KNEE 01/20/2023 7:40 pm COMPARISON: None. HISTORY: ORDERING SYSTEM PROVIDED HISTORY: Reason for Exam: pain FINDINGS: No acute fracture or dislocation is identified. Slight medial femorotibial joint space narrowing. Lateral femorotibial and patellofemoral compartment joint spaces are preserved. Question trace volume effusion. Fabella. Patellar and quadriceps enthesophytes are noted. IMPRESSION: No acute osseous abnormality. Minimal medial femorotibial compartment osteoarthrosis. Question trace volume effusion. I have personally reviewed the images of this examination and agree with the resident's findings and interpretation. Interpreted by: Tavo Parker DO Preliminary Report By: Henny Henao Electronically signed By Tavo Parker DO Dictated Date: 01/20/2023 7:43:41 PM Prelim Date: 01/20/2023 7:45:42 PM Sign Date: 01/20/2023 7:51:13 PM Ordering Provider: [facility] 02-28-2021 History of Presen t illness Narrative Radiology Service Progress Note PATIENT NAME: Ron Ortega DATE OF SERVICE: February 28, 2021 TIME: 7:43 PM PATIENT IDENTITY VERIFICATION COMPLETED USING TWO (2) IDENTIFIERS: Name and Date of confirmed by patient verbally. FALL SCREENING: Has the patient had 2 falls in the last year or 1 fall with injury or currently using an Ambulatory Assistive Device (Walker, Cane, Wheelchair, Crutches, etc.)? No PATIENT GENDER DATA: Male PATIENT RELEVANT IMPLANT DATA REVIEWED: Not Applicable RADIOLOGY DEPARTMENT: General X-ray: Exam(s) Completed: Chest X-Ray PERIPHERAL IV DATA: Not applicable SIGNED BY: RT Matthew February 28, 2021 7:43 PM documented in this encounter [facility] Evaluation + Plan note No data available for this section [facility] Evaluation note Diagnosis Acute pain of right knee- Primary Tear of medial meniscus of right knee, current, unspecified tear type, initial encounter [facility] Cough documented in this encounter [facility] Summary Purpose Family History No Family History Records FoundNo Family History Records Found Advance Directives No Advanced Directives Records FoundNo Advanced Directives Records Found Reason for Referral Specialty Diagnoses / Procedures Referred By Tegan white Referred To Contact [facility] IM[facility] Diagnoses Tear of medial meniscus of right knee, current, unspecified tear type, initial encounter Procedures MRI KNEE WO IVCON RT MRI ANY JT LOWER EXTREM W/O CONTRAST MATRL Brandy Gill MD [address] [place] [address] Mr Imaging Referral ID Status Reason Start Date Expiration Date V isits Requested Visits Authorized [id number] Closed Auto-Generate d Referral 02/07/2023 08/06/2023 1 1 Specialty Diagnoses / Procedures Referred By Tegan white Referred To Contact [facility] Diagnoses Acute pain of right knee Tear of medial meniscus of right knee, current, unspecified tear type, initial encounter Procedures CONSULT TO PHYSICAL THERAPY PHYSICAL THERAPY EVALUATION HIGH COMPLEX 45 MINS Brandy Gill MD [address] [place] [address] [facility] [place] [address] [place] [address] Referral ID Status Reason Start Date Expiration Date Visits Requested Visits Authorized [id number] Pending Review Auto-Generat ed Referral 02/06/2023 02/06/2024 1 1 Medications Administered Section Inactive Administered Medications - up to 3 most recent administrations Medication Order MAR Action Action Date Dose Rate Site betamethasone acetate-betamethasone sodium phosphate 6 mg injection (CELESTONE) 6 mg, Injection - FOR ORTHO USE ONLY, ONE TIME INJECTION, 1 dose, Starting on Myrtle 02/06/23 at 1511, Until Myrtle 02/06/23 at 1511 Given 02/06/2023 3:11 PM EST 6 mg Kne e, Right lidocaine (PF) 10 mg/mL (1 %) 4 mL injection (XYLOCAINE) 4 mL, Injection - FOR ORTHO USE ONLY, ONE TIME INJECTION, 1 dose, Starting on Myrtle 02/06/23 at 1511, Until Myrtle 02/06/23 at 1511 Given 02/06/2023 3:11 PM EST 4 mL Kne e, Right Additional Source Comments Care Team (unrecognized sect ion and content) Care Team Personnel Name: PHYSICIAN, NONE Position: Physician Member Role: Primary Care Physician Name: Mai San RN Position: ED RN Member Role: ED RN Name: KEV HARDIN DO Position: ED Physician Member Role: Attending Physician Address: Address: [facility] [address] [place] [address]- (unrecognized sect ion and content) No Status Records FoundNo Status Records Found INFORMATION SOURCE (unrecogn ized section and content) DATE CREATED AUTHOR 02/22/2023 [facility] ([place]) DATE CREATED AUTHOR AUTHOR'S ORGANIZ ATION 03/25/2023 [facility] Source Comments (unrecognize d section and content) In the event this informatio n is protected by the Federal Confidentiality of Alcohol and Drug Abuse Patient Records regulations: The Federal rules restrict any use of the information to criminally investigate or prosecute any alcohol or drug abuse patient.[facility] the event this information is protected by the Federal Confidentiality of Alcohol and Drug Abuse Patient Records regulations: The Federal rules restrict any use of the information to criminally investigate or prosecute any alcohol or drug abuse patient.[facility] the event this information is protected by the Federal Confidentiality of Alcohol and Drug Abuse Patient Records regulations: The Federal rules restrict any use of the information to criminally investigate or prosecute any alcohol or drug abuse patient.[facility] the event this information is protected by the Federal Confidentiality of Alcohol and Drug Abuse Patient Records regulations: The Federal rules restrict any use of the information to criminally investigate or prosecute any alcohol or drug abuse patient.[facility] Reason for Visit (unrecogniz ed section and content) Reason Comments Results MRI results Reason Comments New Knee Pain Specialty Diagnoses / Procedures Referred By Tegan white Referred To Contact MR IMAGING Diagnoses Tear of medial meniscus of right knee, current, unspecified tear type, initial encounter Procedures MRI KNEE WO IVCON RT MRI ANY JT LOWER EXTREM W/O CONTRAST MATRL Brandy Gill MD [address] [place] [address] [place] [id number] Referral ID Status Reason Start Date Expiration Date V isits Requested Visits Authorized [id number] Closed Auto-Generate d Referral 02/07/2023 08/06/2023 1 1 FOR RECORDS PERTAINING TO PATIENTS WHO ARE OR HAVE BEEN ENROLLED IN A CHEMICAL DEPENDENCY/SUBSTANCEABUSE PROGRAM, SOME INFORMATION MAY BE OMITTED. This clinical summary was aggregated from multiple sources. Caution should be exercised in using it in the provision of clinical care. This summary normalizes information from multiple sources, and as a consequence, information in this document may materially change the coding, format and clinical context of patient data. In addition, data may be omitted in some cases. CLINICAL DECISIONS SHOULD BE BASED ON THE PRIMARY CLINICAL RECORDS. [facility]. provides no warranty or guarantee of the accuracy or completeness of information in this document.
[2024-09-22 12:50] LABS: Lactic Acid 1.8 mmol/L (0.4-1.9)
[2024-09-22 13:00] VITALS: BP 125/58; PULSE 79; RESP 22; O2SAT 98
[2024-09-22 13:28] LABS: Differential Comment SCANNED
[2024-09-22 14:00] VITALS: BP 121/74; PULSE 71; RESP 16; O2SAT 99
[2024-09-22] MEDS: Albuterol Sulfate 8 gm Inhaler (60 puffs) 2 PUFF INHALATION (14:00)
[2024-09-22 14:04] VITALS: BP 121/74; PULSE 71; RESP 16; TEMP 36.6; O2SAT 99
== END 2024-09-22 14:04 | disposition home or self-care (01) ==
PROVIDERS: Emergency Provider Emergency Medicine; PCP Internal Medicine; Visit Provider Emergency Medicine
DX: R06.09 Other forms of dyspnea (principal); J44.1 Chronic obstructive pulmonary disease with (acute) exacerbation; F41.9 Anxiety disorder, unspecified; J45.909 Unspecified asthma, uncomplicated; F17.210 Nicotine dependence, cigarettes, uncomplicated; Z96.649 Presence of unspecified artificial hip joint; Z79.51 Long term (current) use of inhaled steroids
CPT/HCPCS: 71045; 80048; 83605; 85025; 87040; 93005; 94640; 96374; 99285; A4216

== ENCOUNTER 2024-10-16 20:04 | Emergency (ER) | payer OTHER, SELFPAY ==
[2024-10-16] VITALS (11 sets, daily range): BP systolic 142–183; BP diastolic 61–85; PULSE 93–118; RESP 23–30; TEMP 36.6–37.2; O2SAT 85–95; BMI 22.7
--- NOTE | 2024-10-16 20:19 | EKG12_ITS ---
Test Reason : SOB Blood Pressure : */* mmHG Vent. Rate : 106 BPM Atrial Rate : 107 BPM P-R Int : 134 ms QRS Dur : 98 ms QT Int : 340 ms P-R-T Axes : 74 88 65 degrees QTcB Int : 451 ms Sinus tachycardia Incomplete right bundle branch block Borderline ECG Confirmed by MAYURI SILVESTRE, JENNIFER ([id number]), online content editor ANDREW YANG ([id number]) on 10/18/2024 8:15:36 AM Referred By: Confirmed By: JENNIFER MESSINA MD
[2024-10-16] MEDS: MethylPREDNISolone 125 MG/2 ML Vial IV (20:37)
[2024-10-16] MEDS: Ipratropium/Albuterol Sulfate 3 ML AMPUL.NEB INHALATION ×3 (20:38)
[2024-10-16 20:48] LABS: Absolute Lymphocyte Count 2.33 X10^3/uL (0.83-4.51); Absolute Neutrophil Count 6.4 X10^3/uL (2.0-7.7); Basophil# 0.03 X10^3/uL; Basophil% 0.3 % (0-1); Eosinophil# 0.36 X10^3/uL; Eosinophils% 3.5 % (0-5); Hematocrit 43.6 % (40-54); Hemoglobin 14.6 g/dL (13.0-16.5); Lymphocyte # 2.33 X10^3/ul (0.83-4.51); Lymphocyte % 22.4 % (19-41); Mean Corp Hgb Conc 33.5 g/dL (32-36); Mean Corpuscular Hgb 31.1 pg (27.0-32.0); Mean Corpuscular Volume 92.8 fL (80-94); Mean Platelet Vol. 11.6 fl (6.2-12.0); Monocyte# 1.25 X10^3/uL; NRBC Flagged by Analyzer 0 % (0-5); Neutrophil % 61.6 % (47-70); POSITIVE MORPHOLOGY YES; Platelet Count 147 K/mm3 (150-450); RBC Distribution Width CV 13.3 % (11.6-14.6); RBC Distribution Width SD 45.3 fl (35.1-43.9); White Blood Count 10.4 K/mm3 (4.4-11.0)
[2024-10-16 20:52] LABS: Differential Indicated SCAN CRITERIA MET
--- NOTE | 2024-10-16 21:00 | RAD_ITS ---
INDICATION: cough, sob EXAMINATION/TECHNIQUE: X-RAY - XR Chest 2 Views COMPARISON: Chest radiograph 09/22/2024 and 07/15/2022.. Findings: Single frontal view of the chest. LUNG PARENCHYMA: No acute focal airspace disease or mass lesion. Bilateral nipple shadows noted. PLEURA: Flattening of the hemidiaphragms with increased AP diameter consistent with air trapping, as can be seen with COPD change. No pleural effusion. No pneumothorax. HEART/GREAT VESSELS: Cardiomediastinal silhouette is unremarkable. BONES: Osseous structures are unremarkable for age. RAD/Chest PA and Lateral IMPRESSION: Air trapping, as can be seen with COPD change. Chest otherwise with no acute disease. Electronically Signed: Domenic Talbert MD at 22:08 EST ,
[2024-10-16 21:03] LABS: Prothrombin Time (Protime)PT. 13.1 SECONDS (11.7-14.9)
[2024-10-16 21:11] LABS: ALB/GLOB Ratio 1.1 RATIO (0.9-2.4); AST(SGOT) 10 U/L (15-37); Alanine Aminotransfer ALT/SGPT 19 U/L (16-61); Albumin, Serum 3.7 g/dL (3.2-5.0); Alkaline Phosphatase 65 U/L (45-117); Anion Gap 3 (5-15); BUN 15 mg/dL (7-18); BUN/Creat Ratio 18.5 RATIO (10-20); Calcium,Total 8.7 mg/dL (8.5-10.1); Chloride 108 mmol/L (98-107); Creatinine, Serum 0.81 mg/dL (0.70-1.30); EST Glomerular Filtration Rate 101 mL/min (>60); Est Glom Filt Rate - Afr Amer 122 mL/min (>60); Estimated Creatinine Clearance 97.88 ml/min; Globulin 3.3 g/dL (2.2-4.2); Glucose 106 mg/dL (74-106); Potassium 3.8 mmol/L (3.5-5.1); Sodium Level 139 mmol/L (136-145); Troponin-I HS 5 pg/mL (3.0-78.0)
[2024-10-16 21:26] LABS: Lactic Acid 1.3 mmol/L (0.4-1.9)
[2024-10-16 21:31] LABS: Anisocytosis RARE; Platelet Estimate ADEQUATE (ADEQ); Red Cell Morphology N CHROM NORMAL (NORM C&C)
[2024-10-16 21:32] LABS: Macrocytosis RARE; Ovalocyte RARE
--- NOTE | 2024-10-16 21:54 | EDS_ITS ---
HPI History of Present Illness Chief Complaint: Shortness of Breath Narrative Narrative: Patient is a 69-year-old male with past medical history of COPD, tobacco abuse, asthma who presents to the emergency department with a chief complaint of shortness of breath and cough. Patient states that he was seen last week and was diagnosed with bronchitis and stated that at that point time he completed a course of prednisone as well. He states that he has had worsening shortness of breath and increased sputum production over the last several days. He states that it is at the worst in the morning. Patient states that he has been using his inhaler more frequently than normal. Patient denies any history of blood clots denies any recent travel history. Patient according to the triage note up at arrival was 85% on room air is not normally on oxygen. [facility] Medical History Tobacco abuse COPD (chronic obstructive pulmonary disease) History of skin cancer History of COVID-19 Asthma Home Medications ?Medication ?Instructions ?Recorded ?Last Taken ?Type albuterol sulfate 2.5 mg/3 mL 2.5 mg (3 mL) inhalation Q4H PRN 09/22/24 Unknown Rx (0.083 %) solution for nebulization bronchospasm #75 mL albuterol sulfate 90 mcg/actuation 2 puff inhalation Q6H PRN 09/28/24 Unknown Rx aerosol inhaler shortness of breath or wheezing #8.5 grams budesonide 160 mcg-glycopyr 9 2 inh inhalation BID #10.7 grams 09/28/24 Unknown Rx mcg-formot 4.8 mcg/actuation HFA inhaler (Breztri Aerosphere) hydroxyzine HCl 25 mg tablet 25 mg PO Q8H PRN anxiety #90 tabs 10/07/24 Unknown Rx doxycycline hyclate 100 mg capsule 100 mg PO BID 7 days #14 caps 10/17/24 Unknown Rx prednisone 50 mg tablet 50 mg PO DAILY 5 days #5 tabs 10/17/24 Unknown Rx Allergy/AdvReac Type Severity Reaction Status Date / Time No Known Allergies Allergy Verified 10/16/24 20:05 Family History Other No pertinent family history Surgical History History of surgery on wrist Social History household members: spouse current occupational status: employed 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 Smoking Status: Current every day smoker tobacco type: cigarettes Tobacco: How many years used: 40 Electronic Cigarette Use: not used quit status: considering quitting alcohol intake: former substance use type: does not use what type of physical activity do you participate in: walking do you feel safe at home: Yes ROS ROS ED ROS Narrative Constitutional: Denies any fevers, chills, headaches, lightness, dizziness Cardiovascular: Denies any chest pain or palpitations Respiratory: Complains of coughing, shortness of breath and wheezing as noted above Abdomen: Denies any abdominal pain nausea vomit diarrhea : Denies any urinary symptoms Neurological: Denies any numbness, wheeze, tingling Skin: Denies any rashes or lesions EXAM Physical Exam Narrative Exam Narrative: General: Patient lying in bed did appear to be acutely short of breath Head: Atraumatic, normocephalic Eyes: PERRL bilateral, EOMI bilateral, no conjunctival injection noted Neck: Soft, supple, trachea midline Cardiovascular: Patient is tachycardic with a regular rhythm no murmurs gallops rubs noted Respiratory: Patient has end expiratory wheezing noted bilaterally Abdomen: No tenderness to palpation, bowel sounds present x 4 Extremities: +5/5 strength noted in the bilateral upper and lower extremities, radial pulses +2/4 in the bilateral per extremities Neurological: Patient is following commands knew that he was at [facility] there is 2023 Skin: Warm, dry, intact Const Vital Signs: 10/16/24 20:04 10/16/24 20:07 10/16/24 20:07 Temperature 97.8 F 97.8 F Temperature Source Oral Oral Pulse Rate 113 H 113 H Respiratory Rate 25 H 25 H Respiratory Effort Respiratory Pattern Blood Pressure 183/61 H 183/61 H Blood Pressure Mean 101 101 Pulse Ox 85 91 91 Oxygen Delivery Method Room Air Room Air 10/16/24 20:34 10/16/24 20:40 10/16/24 20:43 Temperature Temperature Source Pulse Rate 118 H Respiratory Rate 30 H Respiratory Effort Short of Breath Respiratory Pattern Tachypnea Blood Pressure Blood Pressure Mean Pulse Ox 94 Oxygen Delivery Method Nasal Cannula 10/16/24 21:04 10/16/24 21:07 10/16/24 22:00 Temperature 98.6 F 98.7 F Temperature Source Oral Oral Pulse Rate 114 H 114 H 97 Respiratory Rate 28 H 27 H 25 H Respiratory Effort Respiratory Pattern Blood Pressure 175/85 H 145/67 H 153/67 H Blood Pressure Mean 115 93 95 Pulse Ox 90 94 91 Oxygen Delivery Method Nasal Cannula Room Air Room Air 10/16/24 22:33 10/16/24 23:00 10/16/24 23:53 Temperature 98.9 F 98.3 F Temperature Source Oral Oral Pulse Rate 97 93 95 Respiratory Rate 24 H 24 H 23 H Respiratory Effort Respiratory Pattern Tachypnea Blood Pressure 142/68 H 154/75 H Blood Pressure Mean 92 101 Pulse Ox 91 94 Oxygen Delivery Method Room Air Room Air MDM MDM MDM Narrative Medical decision making narrative: Patient is a 69-year-old male who presents to the emergency department the chief complaint of cough and shortness of breath. Patient will have a workup performed here on the differential diagnose includes but not limited to pneumonia, upper respiratory faction second viral etiology, PE, ACS. Once wo rkup is obtained reviewed he will be reevaluated. Patient will be given 3 DuoNebs and Solu-Medrol. Patient's CBC reviewed and showed no evidence leukocytosis white blood count normal 10.4, Hemofil 14.6, platelet count was noted be 147, INR normal at 1, PT of 13.1. Patient sodium normal at 139, potassium normal at 3.8, creatinine normal at 0.81. Patient's AST and ALT were 10 and 19 respectively. Patient troponin normal at 5. Patient's EKG was reviewed and independently interpreted by myself which showed sinus tachycardia with a rate of 106 bpm. Patient's chest x-ray reviewed and showed air trapping as can be seen with COPD change chest otherwise with no acute disease this was reviewed by myself and by radiology. On reevaluation the patient is still tachycardic tachypneic will add on a CTA of his chest for further evaluation management he will also be given a albuterol treatment as well. Patient CTA of his chest is pending this will be signed out to oncoming provider to follow-up on. Patient ambulated here in the emergency department tolerated this well without any evidence hypoxia oxygen remained 95%. See oncoming providers note for ultimate disposition details. Lab Data Labs: Laboratory Results - last 24 hr 10/16/24 10/16/24 20:19 20:30 WBC 10.4 RBC 4.70 Hgb 14.6 Hct 43.6 MCV 92.8 MCH 31.1 MCHC 33.5 RDW Std Deviation 45.3 H RDW Coeff of Ronnie 13.3 Plt Count 147 L MPV 11.6 Immature Gran % (Auto) 0.200 Neut % (Auto) 61.6 Lymph % (Auto) 22.4 Burnet % (Auto) 12.0 H Eos % (Auto) 3.5 Baso % (Auto) 0.3 Absolute Neuts (auto) 6.4 Absolute Lymphs (auto) 2.33 Nucleated RBC % 0 Platelet Estimate ADEQUATE RBC Morphology N CHROM Anisocytosis RARE Macrocytosis RARE Ovalocytes RARE PT 13.1 INR 1.0 APTT 30.0 Sodium 139 Potassium 3.8 Chloride 108 H Carbon Dioxide 28.0 Anion Gap 3 L BUN 15 Creatinine 0.81 Estim Creat Clear Calc 97.88 Est GFR (MDRD) Af Amer 122 Est GFR (MDRD) Non-Af 101 BUN/Creatinine Ratio 18.5 Glucose 106 Lactic Acid 1.3 Calcium 8.7 Total Bilirubin 0.60 AST 10 L ALT 19 Alkaline Phosphatase 65 Troponin I High Sens 5 Total Protein 7.0 Albumin 3.7 Globulin 3.3 Albumin/Globulin Ratio 1.1 Radiography Diagnostic Testing: Clinical Impression(s) from Imaging Studies Chest X-Ray 10/16/24 21:00 IMPRESSION: Air trapping, as can be seen with COPD change. Chest otherwise with no acute disease. Electronically Signed: Domenic Talbert MD at 22:08 EST , Discharge Plan Triage Chief Complaint: Shortness of Breath ED Provider: Brandyn Murguia Dx/Rx/DC Orders Clinical Impression: COPD exacerbation Prescriptions: New doxycycline hyclate 100 mg capsule 100 mg PO BID 7 Days Qty: 14 0RF prednisone 50 mg tablet 50 mg PO DAILY 5 Days Qty: 5 0RF No Action Breztri Aerosphere 160-9-4.8 mcg/actuation HFA aerosol inhaler 2 inh inhalation BID Qty: 10.7 1RF albuterol sulfate 90 mcg/actuation HFA aerosol inhaler 2 puff inhalation Q6H PRN (Reason: shortness of breath or wheezing) Qty: 8.5 1RF albuterol sulfate 2.5 mg /3 mL (0.083 %) solution for nebulization 2.5 mg inhalation Q4H PRN (Reason: bronchospasm) Qty: 75 0RF hydroxyzine HCl 25 mg tablet 25 mg PO Q8H PRN (Reason: anxiety) Qty: 90 0RF Primary Care Provider: Ella Ventura Referrals: Ella Ventura MD [Primary Care Provider] - Activity Restrictions/Additional Instructions: Follow with your primary care physician in the outpatient setting. Use your inhalers as prescribed. Take steroids as prescribed as well as antibiotic. Return with worsening symptoms or any other concerns Print Language: Armenian Disposition Disposition: Home, Self Care
--- NOTE | 2024-10-16 22:17 | CT_ITS ---
INDICATION: sob, tachy EXAMINATION: - CTA Chest WO/W Contrast Injection A radiation dose optimization technique was used for this scan. RADIATION DOSAGE (If Supplied By Facility): CTDIvol/DLP = ( 10.58 ) / ( 446.60 ) mGy/mGycm COMPARISON: Chest radiograph same day. FINDINGS: Contrast enhanced serial CTA axial images through the chest with coronal and sagittal reformatted series. Additional dedicated coronal and sagittal MIP reformatted series provided as well. IV Contrast dosage and agent: 100 cc [id number]-370 IV. MEDIASTINUM: No acute thoracic aortic abnormality. No pulmonary artery filling defects. Mediastinum is otherwise unremarkable. LUNG PARENCHYMA: Upper lung predominant emphysematous lung changes. No acute pulmonary parenchymal abnormality. PLEURA: No pleural effusion. No pneumothorax. BONES: Osseous structures are unremarkable for age. UPPER ABDOMEN: Tiny 8 mm left hepatic lobe lesion too small to characterize further. CT/CTA Chest W/WO Contrast IMPRESSION: No pulmonary embolus or acute thoracic aortic abnormality. No acute abnormality of the chest identified. Electronically Signed: Domenic Talbert MD at 0:50 EST ,
[2024-10-16] MEDS: Albuterol 2.5 MG/3 ML VIAL.NEB. INHALATION (22:32)
[2024-10-17 01:00] VITALS: BP 123/55; PULSE 95; O2SAT 91
[2024-10-17 01:25] VITALS: BP 123/69; PULSE 91; RESP 16; TEMP 36.1; O2SAT 94
== END 2024-10-17 01:26 | disposition home or self-care (01) ==
PROVIDERS: Emergency Provider Emergency Medicine; PCP Internal Medicine; Visit Provider Emergency Medicine
DX: J44.1 Chronic obstructive pulmonary disease with (acute) exacerbation (principal); F17.210 Nicotine dependence, cigarettes, uncomplicated; Z86.16 Personal history of COVID-19
CPT/HCPCS: 71046; 71275; 80053; 83605; 84484; 85025; 85610; 85730; 87040; 87631; 93005; 94640; 96374; 99284; Q9967; A4216

== ENCOUNTER 2025-01-09 13:51 | Inpatient (IN) | payer OTHER, MEDICARE, SELFPAY ==
[2025-01-09] VITALS (11 sets, daily range): BP systolic 109–139; BP diastolic 59–72; PULSE 95–118; RESP 16–26; TEMP 35.8–37.6; O2SAT 90–99; BMI 21.7; BMI 22.7
--- NOTE | 2025-01-09 14:07 | EDS_ITS ---
HPI History of Present Illness Chief Complaint: Shortness of Breath PFSH PFSH Medical History Tobacco abuse COPD (chronic obstructive pulmonary disease) History of skin cancer History of COVID-19 Asthma Home Medications ?Medication ?Instructions ?Recorded ?Last Taken ?Type albuterol sulfate 2.5 mg/3 mL 2.5 mg (3 mL) inhalation Q4H PRN 09/22/24 Unknown Rx (0.083 %) solution for nebulization bronchospasm #75 m L albuterol sulfate 90 mcg/actuation 2 puff inhalation Q 6H PRN 09/28/24 Unknown Rx aerosol inhaler shortness of breath or wheez ing #8.5 grams budesonide 160 mcg-glycopyr 9 2 inh inhalation BID #10 .7 grams 09/28/24 Unknown Rx mcg-formot 4.8 mcg/actuation HFA inhaler (Breztri Aerosphere) Allergy/AdvReac Type Severity Reaction Status Date / Time No Known Allergies Allergy Verified 10/16/24 20:05 Family History Other No pertinent family history Surgical History History of surgery on wrist Social History household members: spouse current occupational status: employed 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 Smoking Status: Current every day smoker tobacco type: cigarettes Tobacco: How many years used: 40 Electronic Cigarette Use: not used quit status: considering quitting alcohol intake: former substance use type: does not use what type of physical activity do you participate in: walking do you feel safe at home: Yes EXAM Physical Exam Const Vital Signs: 01/09/25 13:52 01/09/25 15:08 01/09/25 15:20 Temperature 96.5 F L 99.7 F H Temperature Source Temporal Oral Pulse Rate 118 H 118 H 118 H Respiratory Rate 26 H 22 H 26 H Respiratory Pattern Normal Blood Pressure 119/59 L 109/61 Blood Pressure Mean 79 77 Pulse Ox 93 99 Oxygen Delivery Method Room Air Room Air 01/09/25 16:26 01/09/25 16:41 Temperature 99.6 F H 99.6 F H Temperature Source Oral Pulse Rate 109 H 107 H Respiratory Rate 20 H 16 Respiratory Pattern Blood Pressure 125/60 H 131/61 H Blood Pressure Mean 81 84 Pulse Ox 93 93 Oxygen Delivery Method Room Air [facility] Narrative Medical decision making narrative: HISTORY OF PRESENT ILLNESS: 69-year-old male history of COPD presents with shortness of breath. The patient states his was really diagnosed influenza A. Notes for the past 24 hours has been feeling more ill. He notes a cough. No shortness of breath. Denies chest pain. Denies leg swelling. Denies any bleeding diathesis. The patient denies recent surgery in the last 4 weeks or immobilization in the last 3 days, denies previous diagnosis of DVT or PE, hemoptysis, unilateral leg swelling or malignancy with treatment the last 6 months or palliative. No estrogen use noted. REVIEW OF SYSTEMS: Pertinent positives: Shortness of breath, cough Pertinent negatives: Chest pain, leg swelling PHYSICAL EXAM: Nursing triage notes reviewed, Vital signs reviewed Constitutional: please see [facility] HENT: MMM Eyes: Pupils equal round and reactive to light, Extraocular muscles intact Neck: No stridor, no JVD, full neck ROM Lungs: mild increased work of breathing, coarse breath sounds, bilateral wheezing, tight lungs, prolonged expiratory phase, mild conversational dyspnea, no significant accessory muscle use. Heart: Regular rate and rhythm, No murmurs, No rubs and No gallops, 2+ distal pulses (radial, femoral, posterior tibial) in all extremities Abdomen: Soft, there is no tenderness, rigidity, rebound or guarding, no obvious peritoneal signs, no palpable pulsatile abdominal masses, no auscultated abdominal bruit : No CVAT Extremities: No edema Neuro: No new focal neurological deficits, cranial nerves II through XII intact, 5/5 strength in all present extremities. Intact sensation to light touch in all present extremities, 2+ reflexes bilateral patella tendons. Skin: No rash or lesions noted MEDICAL DECISION MAKING: Chief Complaint: Shortness of breath External records reviewed: Seen for COPD exacerbation October Factors affecting care: COPD Social determinants of health: Current smoker History obtained from others: Family Consults: Internal medicine (Dr. Tiwari) [facility] Narrative: Patient was initially tachycardic rate of 118, tachypneic with respiratory 26, afebrile saturating 93% on room air. There is report of an ambulatory pulse ox of 88% which is acceptable COPD. I considered the following differential diagnosis: COPD exacerbation, pneumonia, COVID, RSV, flu, ACS, arrhythmia, anemia, PE ALL IMAGES (IF OBTAINED) HAVE BEEN PERSONALLY REVIEWED AND INTERPRETED BY MYSELF. EKG with sinus tachycardia rate 114, normal axis, normal intervals, QTc 465, no STEMI no signs of right heart strain I have personally reviewed the patient's chest x-ray. Chest x-ray is unremarkable for pulmonary edema, pneumothorax, pneumonia or focal cardiopulmonary abnormality. High-sensitivity troponin is negative, no evidence of myocardial ischemia CBC with no leukocytosis, no anemia or thrombocytopenia BMP without evidence of significant electrolyte abnormalities, no anion gap, no acute kidney injury. COVID/RSV/flu swab positive for influenza A Patient's etiology is likely COPD exacerbation that was precipitated by influenza A. Patient was ambulated here and while he maintained his oxygen of 88% he became significantly tachycardic and winded. His heart rate got as high as 130. Given his poor functional performance, signs of COPD exacerbation influenza A he was given Tamiflu admitted to the floor for further breathing treatments and observation. Discussed with Dr. Tiwari. The patient and/or family, caregivers express understanding. The patient and/or family, caregivers agrees with the plan. Shared decision making: I will have a discussion with the patient and or visitors regarding risk/benefits of further testing or admission. They will be made aware of of the risk/benefits inherent in this decision they will be given the opportunity to voice understanding. Total critical care time today provided was at least 0 minutes. This excludes separately billable procedures. Critical care time (if documented) is secondary to the patient having high probability of clinically significant/life threatening deterioration in the patient's condition which required my urgent intervention. Impression: 1. Shortness of breath 2. History of COPD 3. Influenza A Dispo: Admit to PCU This note was generated with [employer] dictation software. It may contain incorrect words, spelling, and punctuation that were not noted in review of the chart prior to signing. Lab Data Labs: Laboratory Results - last 24 hr 01/09/25 14:00 WBC 7.5 RBC 4.37 L Hgb 13.7 Hct 39.9 L MCV 91.3 MCH 31.4 MCHC 34.3 RDW Std Deviation 44.4 H RDW Coeff of Ronnie 13.2 Plt Count 119 L MPV 12.4 H Immature Gran % (Auto) 0.300 Neut % (Auto) 83.2 H Lymph % (Auto) 4.5 L Archuleta % (Auto) 11.6 H Eos % (Auto) 0.3 Baso % (Auto) 0.1 Absolute Neuts (auto) 6.2 Absolute Lymphs (auto) 0.34 L Nucleated RBC % 0 Sodium 137 Potassium 3.9 Chloride 103 Carbon Dioxide 26.0 Anion Gap 7 BUN 20 H Creatinine 0.96 Est GFR (MDRD) Af Amer 101 Est GFR (MDRD) Non-Af 83 BUN/Creatinine Ratio 20.9 H Glucose 102 Calcium 8.7 Troponin I High Sens 6 Radiography Diagnostic Testing: Clinical Impression(s) from Imaging Studies Chest X-Ray 01/09/25 14:10 IMPRESSION: NEGATIVE SINGLE VIEW OF THE CHEST. Reading Location: [facility] Discharge Plan Triage Chief Complaint: Shortness of Breath ED Provider: Sloan Fish Dx/Rx/DC Orders Prescriptions: No Action Breztri Aerosphere 160-9-4.8 mcg/actuation HFA aerosol inhaler 2 inh inhalation BID Qty: 10.7 1RF albuterol sulfate 90 mcg/actuation HFA aerosol inhaler 2 puff inhalation Q6H PRN (Reason: shortness of breath or wheezing) Qty: 8.5 1RF albuterol sulfate 2.5 mg /3 mL (0.083 %) solution for nebulization 2.5 mg inhalation Q4H PRN (Reason: bronchospasm) Qty: 75 0RF Primary Care Provider: Ella Ventura Referrals: Ella Ventrua MD [Primary Care Provider] - Print Language: Moroccan
--- NOTE | 2025-01-09 14:09 | EKG12_ITS ---
Test Reason : SOB Blood Pressure : */* mmHG Vent. Rate : 114 BPM Atrial Rate : 114 BPM P-R Int : 116 ms QRS Dur : 102 ms QT Int : 338 ms P-R-T Axes : 69 89 75 degrees QTcB Int : 465 ms Sinus tachycardia Incomplete right bundle branch block Borderline ECG Confirmed by Reinier Mendoza ([id number]), purchase request editor ANDREW YANG ([id number]) on 01/10/2025 11:09:31 AM Referred By: Confirmed By: Reinier Mendoza
--- NOTE | 2025-01-09 14:10 | RAD_ITS ---
PROCEDURE: CHEST 1 VIEW (PORTABLE) REASON FOR EXAM: Cough TECHNIQUE: Frontal view of the chest. COMPARISON: Reviewed. FINDINGS: The cardiac and mediastinal contours are normal. The lungs are clear. RAD/Chest 1 View (Portable) IMPRESSION: NEGATIVE SINGLE VIEW OF THE CHEST. Reading Location: [facility]
[2025-01-09 14:25] LABS: Absolute Lymphocyte Count 0.34 X10^3/uL (0.83-4.51); Absolute Neutrophil Count 6.2 X10^3/uL (2.0-7.7); Basophil# 0.01 X10^3/uL; Basophil% 0.1 % (0-1); Eosinophil# 0.02 X10^3/uL; Eosinophils% 0.3 % (0-5); Hematocrit 39.9 % (40-54); Hemoglobin 13.7 g/dL (13.0-16.5); Lymphocyte # 0.34 X10^3/ul (0.83-4.51); Lymphocyte % 4.5 % (19-41); Mean Corp Hgb Conc 34.3 g/dL (32-36); Mean Corpuscular Hgb 31.4 pg (27.0-32.0); Mean Corpuscular Volume 91.3 fL (80-94); Mean Platelet Vol. 12.4 fl (6.2-12.0); Monocyte# 0.87 X10^3/uL; Monocyte% 11.6 % (0-10); NRBC Flagged by Analyzer 0 % (0-5); Neutrophil # 6.23 X10^3/uL (2.7-7.7); Neutrophil % 83.2 % (47-70); POSITIVE DIFFERENTIAL YES; Platelet Count 119 K/mm3 (150-450); RBC Distribution Width CV 13.2 % (11.6-14.6); RBC Distribution Width SD 44.4 fl (35.1-43.9); Red Blood Count 4.37 M/mm3 (4.6-6.2); White Blood Count 7.5 K/mm3 (4.4-11.0)
[2025-01-09 14:33] LABS: Anion Gap 7 (5-15); BUN 20 mg/dL (7-18); BUN/Creat Ratio 20.9 RATIO (10-20); Calcium,Total 8.7 mg/dL (8.5-10.1); Chloride 103 mmol/L (98-107); Creatinine, Serum 0.96 mg/dL (0.70-1.30); EST Glomerular Filtration Rate 83 mL/min (>60); Est Glom Filt Rate - Afr Amer 101 mL/min (>60); Glucose 102 mg/dL (74-106); Potassium 3.9 mmol/L (3.5-5.1); Sodium Level 137 mmol/L (136-145); Troponin-I HS 6 pg/mL (3.0-78.0)
[2025-01-09] MEDS: Ipratropium/Albuterol Sulfate 3 ML AMPUL.NEB INHALATION ×3 (15:05→22:59)
[2025-01-09] MEDS: Acetaminophen/Codeine #3 Tablet 1 TABLET PO (15:12)
[2025-01-09] MEDS: MethylPREDNISolone 125 MG/2 ML Vial IV (15:12)
[2025-01-09] MEDS: Oseltamivir Phosphate 75 MG Capsule PO ×2 (17:08→22:54)
--- NOTE | 2025-01-09 17:18 | HP.PCM.HOS_ITS ---
HPI - General General Date of Admission: 01/09/25 Date of Service: 01/09/25 Chief Complaint: SOB and cough HPI Narrative AMY NIÑO, is a 69-year-old male history of COPD and anxiety presented to [facility] ED 01/09/2025 with increased shortness of breath. In the ED patient heart rate 118, respiratory rate 26 and afebrile saturating 93% on room air. He had chest x-ray that was unremarkable, troponin of 6 and CBC and BMP benign. Patient found to be influenza A positive. Patient given DuoNebs and steroids but given his continued shortness of breath hospitalist contacted for admission for COPD exacerbation. Patient evaluated bedside. Patient reports since last night he has had increased shortness of breath and cough with phlegm, felt a little bit nauseous earlier but has not really eaten much in the past couple of days. Has a little bit of abdominal discomfort from all of the coughing and straining denies any diarrhea, no overt fevers but has had some sweats, no chest pain. [facility] Medical History Tobacco abuse COPD (chronic obstructive pulmonary disease) History of skin cancer History of COVID-19 Asthma Home Medications ?Medication ?Instructions ?Recorded ?Last Taken ?Type albuterol sulfate 2.5 mg/3 mL 2.5 mg (3 mL) inhalation Q4H PRN 09/22/24 Unknown Rx (0.083 %) solution for nebulization bronchospasm #75 m L albuterol sulfate 90 mcg/actuation 2 puff inhalation Q 6H PRN 09/28/24 Unknown Rx aerosol inhaler shortness of breath or wheez ing #8.5 grams budesonide 160 mcg-glycopyr 9 2 inh inhalation BID #10 .7 grams 09/28/24 Unknown Rx mcg-formot 4.8 mcg/actuation HFA inhaler (Breztri Aerosphere) Allergy/AdvReac Type Severity Reaction Status Date / Time No Known Allergies Allergy Verified 10/16/24 20:05 Family History Other No pertinent family history Surgical History History of surgery on wrist Social History household members: spouse current occupational status: employed 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 Smoking Status: Current every day smoker tobacco type: cigarettes Tobacco: How many years used: 40 Electronic Cigarette Use: not used quit status: considering quitting alcohol intake: former substance use type: does not use what type of physical activity do you participate in: walking do you feel safe at home: Yes ROS ROS Narrative General: Had some sweats HENT: Headache EYES: Denies changes in vision Resp: Cough with some phlegm, increased shortness of breath since last night Cardiac: Denies chest pain GI: Some abdominal muscle pain from coughing, denies changes in bowel, little bit of nausea : Denies changes in urination Extremity: Denies swelling MSK: Denies weakness Neuro: Denies any numbness/tingling Heme: Denies any bleeding or bruising Skin: Denies rashes Psychiatric: No complaints voiced Vital Signs Vital Signs Vital Signs: 01/09/25 13:52 01/09/25 15:08 01/09/25 15:20 Temperature 96.5 F L 99.7 F H Temperature Source Temporal Oral Pulse Rate 118 H 118 H 118 H Respiratory Rate 26 H 22 H 26 H Respiratory Pattern Normal Blood Pressure 119/59 L 109/61 Blood Pressure Mean 79 77 Pulse Ox 93 99 Oxygen Delivery Method Room Air Room Air 01/09/25 16:26 01/09/25 16:41 Temperature 99.6 F H 99.6 F H Temperature Source Oral Pulse Rate 109 H 107 H Respiratory Rate 20 H 16 Respiratory Pattern Blood Pressure 125/60 H 131/61 H Blood Pressure Mean 81 84 Pulse Ox 93 93 Oxygen Delivery Method Room Air Weight Weight: 74.8 kg Body Mass Index (BMI) 21.7 Physical Exam Narrative General: Alert, oriented HEENT: Atraumatic, normocephalic Eyes: Anicteric, normal conjunctiva, extraocular movements grossly intact Neck: Supple Respiratory: Diffuse wheezes, increased respiratory effort Cardiovascular: Regular rate and rhythm GI: Soft, nontender, nondistended Extremities: No edema Musculoskeletal: Moving all extremities Neuro: No overt focal neurological deficits Skin: No rashes appreciated Psych: Cooperative Results Lab / Micro Data 01/09/25 14:00 01/09/25 14:00 Labs: Laboratory Results - last 24 hr 01/09/25 14:00: WBC 7.5, RBC 4.37 L, Hgb 13.7, Hct 39.9 L, MCV 91.3, MCH 31.4, MCHC 34.3, RDW Std Deviation 44.4 H, RDW Coeff of Ronnie 13.2, Plt Count 119 L, MPV 12.4 H, Immature Gran % (Auto) 0.300, Neut % (Auto) 83.2 H, Lymph % (Auto) 4.5 L , Mcculloch % (Auto) 11.6 H, Eos % (Auto) 0.3, Baso % (Auto) 0.1, Absolute Neuts (auto) 6.2, Absolute Lymphs (auto) 0.34 L, Nucleated RBC % 0, Sodium 137, Potassium 3.9, Chloride 103, Carbon Dioxide 26.0, Anion Gap 7, BUN 20 H, Creatinine 0.96, Est GFR (MDRD) Af Amer 101, Est GFR (MDRD) Non-Af 83, B UN/Creatinine Ratio 20.9 H, Glucose 102, Calcium 8.7, Troponin I High Sens 6 Micro: Microbiology 01/09/25 14:00 Mucosa - Nose SARS-CoV-2, Influenza & RSV (PCR) - Final Influenzae A Imaging Radiology Impression Chest X-Ray 01/09/25 14:10 IMPRESSION: NEGATIVE SINGLE VIEW OF THE CHEST. Reading [facility] Assessment & Plan Assessment/Plan (1) Acute exacerbation of COPD with asthma: (2) Current smoker: PLAN: Plan #Acute exacerbation of COPD -Admit to floor, continuous O2 monitoring -Chest x-ray: Unremarkable -influenza A +, sputum culture if able -O2 in place, wean as tolerated -IV methylprednisone -Scheduled DuoNebs -Albuterol prn -Azithromycin -Will start Tamiflu given symptoms for 1 day -Incentive spirometer -Mucinex #Tobacco use -Advise cessation -Nicotine replacement available if desired #DVT ppx: Lovenox subcu Marita Tiwari MD Charges/Coding Visit Charges Inpatient E&M: 20977 Init Hosp L1
[2025-01-09] MEDS: Benzonatate 100 MG Capsule PO (18:50)
[2025-01-09] MEDS: Acetaminophen 325 MG Tablet 650 MG PO (18:50)
[2025-01-09] MEDS: 0.9% Saline Lock 10 ML Syringe IV (22:53)
[2025-01-09] MEDS: guaiFENesin 1,200 MG Tablet 1200 MG PO (22:54)
[2025-01-10] VITALS (13 sets, daily range): BP systolic 129–137; BP diastolic 58–68; PULSE 80–113; RESP 16–20; TEMP 36.9–37.6; O2SAT 88–97
[2025-01-10] MEDS: Ipratropium/Albuterol Sulfate 3 ML AMPUL.NEB INHALATION ×6 (02:44→23:33)
[2025-01-10] MEDS: Acetaminophen 325 MG Tablet 650 MG PO ×2 (05:58→20:46)
[2025-01-10] MEDS: 0.9% Saline Lock 10 ML Syringe IV ×3 (06:04→20:47)
[2025-01-10 06:12] LABS: Absolute Lymphocyte Count 0.36 X10^3/uL (0.83-4.51); Absolute Neutrophil Count 5.7 X10^3/uL (2.0-7.7); Basophil# 0.01 X10^3/uL; Basophil% 0.2 % (0-1); Hematocrit 39.8 % (40-54); Hemoglobin 13.5 g/dL (13.0-16.5); Lymphocyte # 0.36 X10^3/ul (0.83-4.51); Lymphocyte % 5.5 % (19-41); Mean Corp Hgb Conc 33.9 g/dL (32-36); Mean Corpuscular Volume 91.3 fL (80-94); Mean Platelet Vol. 12.5 fl (6.2-12.0); Monocyte# 0.41 X10^3/uL; Monocyte% 6.3 % (0-10); NRBC Flagged by Analyzer 0 % (0-5); Neutrophil % 87.5 % (47-70); POSITIVE DIFFERENTIAL YES; Platelet Count 114 K/mm3 (150-450); RBC Distribution Width SD 44.2 fl (35.1-43.9); Red Blood Count 4.36 M/mm3 (4.6-6.2); White Blood Count 6.5 K/mm3 (4.4-11.0)
[2025-01-10 06:33] LABS: Anion Gap 7 (5-15); BUN 25 mg/dL (7-18); BUN/Creat Ratio 27.9 RATIO (10-20); Calcium,Total 8.5 mg/dL (8.5-10.1); Chloride 103 mmol/L (98-107); EST Glomerular Filtration Rate 90 mL/min (>60); Est Glom Filt Rate - Afr Amer 109 mL/min (>60); Estimated Creatinine Clearance 87.99 ml/min; Glucose 143 mg/dL (74-106); Potassium 4.2 mmol/L (3.5-5.1); Sodium Level 132 mmol/L (136-145)
[2025-01-10] MEDS: guaiFENesin 1,200 MG Tablet 1200 MG PO ×2 (08:50→20:46)
[2025-01-10] MEDS: Enoxaparin 40 MG/0.4 ML Syringe SC (08:50)
[2025-01-10] MEDS: Benzonatate 100 MG Capsule PO (08:51)
[2025-01-10] MEDS: Oseltamivir Phosphate 75 MG Capsule PO ×2 (08:51→20:46)
[2025-01-10] MEDS: Azithromycin 250 MG Tablet 500 MG PO (08:51)
--- NOTE | 2025-01-10 20:16 | PN.HOSP_ITS ---
Reason for Visit Reason for Visit: Diagnoses Nicotine dependence, unspecified, uncomplicated (01/10/25) Chronic obstructive pulmonary disease with (acute) exacerbation (01/10/25) Unspecified asthma with (acute) exacerbation (01/10/25) Subjective Subjective Patient was seen and examined today, the patient required 2 L of oxygen on ambulation today, patient did not appear to be feeling well today at the time of my examination and so I elected to keep the patient in the hospital and continue IV corticosteroids and aggressive aerosol treatments. He will be reevaluated tomorrow. Objective Data Objective Data Vital Signs: Vital Signs Temp Pulse Resp BP Pulse Ox O2 Del Method O2 Flow Rate 99 F 101 H 16 137/58 H 93 Room Air 2 01/10/25 18:41 01/10/25 18:41 01/10/25 18:41 01/10/25 18:41 01/10/25 18:41 01/10/25 18:41 01/10/25 09:06 Oxygen Flow Rate (L/min) 2 Oxygen Delivery Method Room Air Weight: 78.109 kg Body Mass Index (BMI) 22.7 Intake & Output: Intake and Output for Last 24 Hours 01/08/25 01/09/25 01/10/25 23:59 23:59 23:59 Intake Total 220 / 220 680 / 680 Balance 220 / 220 680 / 680 Lab / Micro Data 01/10/25 05:44 01/10/25 05:44 Labs: Laboratory Results - last 24 hr 01/10/25 05:44: WBC 6.5, RBC 4.36 L, Hgb 13.5, Hct 39.8 L, MCV 91.3, MCH 31.0, MCHC 33.9, RDW Std Deviation 44.2 H, RDW Coeff of Ronnie 13.0, Plt Count 114 L, MPV 12.5 H, Immature Gran % (Auto) 0.500, Neut % (Auto) 87.5 H, Lymph % (Auto) 5.5 L , Bureau % (Auto) 6.3, Eos % (Auto) 0.0, Baso % (Auto) 0.2, Absolute Neuts (auto) 5.7, Absolute Lymphs (auto) 0.36 L, Nucleated RBC % 0, Sodium 132 L, Potassium 4.2, Chloride 103, Carbon Dioxide 22.0, Anion Gap 7, BUN 25 H, Creatinine 0.90, Estim Creat Clear Calc 87.99, Est GFR (MDRD) Af Amer 109, Est GFR (MDRD) Non-Af 90, BUN/Creatinine Ratio 27.9 H, Glucose 143 H, Calcium 8.5 Micro: Microbiology 01/09/25 14:00 Mucosa - Nose SARS-CoV-2, Influenza & RSV (PCR) - Final Influenzae A 01/09/25 19:00 Sputum, Expectorated/Coughed Gram Stain - Final 01/09/25 19:00 Sputum, Expectorated/Coughed Respiratory Culture - Preliminary Physical Exam Const alert, oriented x3 and no apparent distress General Appearance: cooperative, well kempt and well developed Orientation / Consciousness: awake, oriented to person, oriented to place and oriented to time HEENT normocephalic, head/scalp atraumatic and moist oral mucous membranes Eyes PERRL, EOMs intact bilaterally and conjunctivae normal Neck supple, no JVD, thyroid normal and no carotid bruits General: trachea midline Resp normal respiratory effort and no retractions Resp Narrative: Breath sounds are diminished bilaterally Auscultation: Negative for rales, rhonchi or wheezes Cardio regular rate, regular rhythm, S1 normal heart sound, S2 normal heart sound, no murmurs, no rub and no gallops GI normal to inspection, nondistended, normoactive bowel sounds, soft to palpation, non-tender and non-distended Extremity no clubbing, cyanosis or edema Skin no rashes or lesions noted General Skin Exam: no breakdown Neuro oriented x3, CN's II-XII intact bilaterally, no focal motor deficits and no sensory deficits noted Sensorium / Orientation: awake and alert Speech: speech normal Psych affect normal Assessment & Plan Assessment/Plan (1) Acute exacerbation of COPD with asthma: PLAN: Plan 1. Acute exacerbation of COPD secondary to influenza A infection-continue IV corticosteroids and aerosol treatments #2 hypoxia secondary to #1-patient's pulse ox will be monitored, oxygen will be weaned if possible Total clinical time spent by myself addressing patient's medical issues, reviewing all of his data, and collaborating with patient's care team: 35 minutes Charges/Coding Visit Charges Inpatient E&M: 91334 Subs Hosp L2
[2025-01-11] VITALS (7 sets, daily range): BP systolic 123–134; BP diastolic 62–78; PULSE 78–90; RESP 16–18; TEMP 36.6–36.9; O2SAT 92–97
[2025-01-11] MEDS: Ipratropium/Albuterol Sulfate 3 ML AMPUL.NEB INHALATION ×3 (03:21→10:53)
[2025-01-11] MEDS: 0.9% Saline Lock 10 ML Syringe IV ×2 (05:49→13:29)
[2025-01-11] MEDS: Enoxaparin 40 MG/0.4 ML Syringe SC (08:42)
[2025-01-11] MEDS: guaiFENesin 1,200 MG Tablet 1200 MG PO (08:42)
[2025-01-11] MEDS: Oseltamivir Phosphate 75 MG Capsule PO (08:43)
[2025-01-11] MEDS: Azithromycin 250 MG Tablet 500 MG PO (08:43)
--- NOTE | 2025-01-11 09:30 | CASEMGMT ---
ISHAN GILLILAND Assessment: Face to Face with pt for initial transition planning/care coordination assessment. ISHAN GILLILAND introduced self and role at [facility], pt voices understanding and consents to assessment. Pt is A&O x4 and answers all questions appropriately at this time. Pt sitting up in bed in no distress. Care providers, pharmacy, and demographics verified/updated. Strata: 2 Admitting Dx: Resp Distress, Influenza PCP: Lorenzo Specialists: Denies Preferred Pharmacy: [facility] Insurance: [employer], MCR A Prescription Benefit: yes LNOK: , Miguelina Living Arrangements: Pt lives with in a trailer with 5 steps to enter. ADLs: Pt I at baseline with ADLs and IADLs. Transportation: Pt drives self and denies concerns with transportation. DME: Nebulizer, walker, cane, portably toilet HHC/SNF: Denies Hx of. Pt states no concerns with going home at time of dc. ISHAN GILLILAND discussed possibility of O2 needs at DC, provided list of local DME providers. Pt Chose [facility] as provider of choice if requires O2 at DC. Pt states no further concerns/needs. CM to follow. Advised pt to ask CM if any further question/concerns/needs arise, voices understanding. Pt Goal: Home Plan: Home, follow for O2 needs. Niko OLMSTEAD CM
--- NOTE | 2025-01-11 13:01 | CHAPLAIN ---
Type of Pastoral Visit _x__ Initial Visit ___ Follow-up Visit ___ On-call Visit ___ General Patient Visit ___ Spiritual Assessment ___ Family Conference ___ Bereavement ___ Rapid Response ___ Code Blue ___ Other (describe below) Pastoral Care Referral From _x__ Patient ___ Family ___ Nurse ___ Physician ___ Manager Strategic Development ___ Offset Printing Operator ___ Other (describe below) Sacrament/Intervention ___ Active listening ___ Anointing ___ Faith ___ Bereavement ___ Communion ___ Rosario exploration ___ ___ Life review ___ Prayer ___ Reconciliation ___ Sacrament of Sick _x__ Supportive presence ___ Wedding ___ Other (describe below) Pastoral Comments patient was engaged actively in a phone conversation; offer of support and of a visit later if more convenient; pt was surprised that the ctrs had come to see him and declined spiritual care
--- NOTE | 2025-01-11 14:59 | DCINST_ITS ---
Discharge Instructions Diet Discharge Diet: No restrictions DC O2, CPAP, BIPAP needs RN Home O2 Qualification: Home O2 Qualification: Is the patient on home oxygen No 01/11/25 12:13 Home O2 Qualification: AT REST 1- Pulse Ox at rest 96 01/11/25 12:13 Home O2 Qualification: WITH AMBULATION 1- Pulse Ox with ambulation 92 01/11/25 12:13 1- Oxygen Flow Rate with 0 01/11/25 12:13 ambulation 2- Pulse Ox with ambulation 90 01/10/25 15:11 2- Oxygen Flow Rate with 2 01/10/25 15:11 ambulation Home O2 Discharge instructions: No Dressing / Incision Discharge Activity: Return to Normal Activity Weight Bearing Status: Full weight bearing Follow Up Care Test Results: Test results from this visit will be discussed in further detail at your follow- up appointment, if applicable. Discharge Plan Admission Admit Date/Time: 01/10/25 18:49 Primary Reason for Your Visit: Exacerbation of COPD, influenza A Attending Provider: Isidoro Acuña Primary Care Provider: Ella Ventura Consulting Providers: Marita Tiwari Discharge Orders/Prescriptions Prescriptions: New oseltamivir 75 mg Capsule 75 mg PO BID Qty: 7 0RF Continued albuterol sulfate 90 mcg/actuation HFA aerosol inhaler 2 puff inhalation Q6H PRN (Reason: shortness of breath or wheezing) Qty: 8.5 1RF Breztri Aerosphere 160-9-4.8 mcg/actuation HFA aerosol inhaler 2 inh inhalation BID Qty: 10.7 1RF Discontinued albuterol sulfate 2.5 mg /3 mL (0.083 %) solution for nebulization 2.5 mg inhalation Q4H PRN (Reason: bronchospasm) Qty: 75 0RF Referrals / Follow Up: Ella Ventura MD [Primary Care Provider] - Within 2 Weeks Disposition Disposition (needs filled in before D/C Order can be placed): Home, Self Care
--- NOTE | 2025-01-11 15:05 | PCM.DC.SUM ---
Providers Date of Admission: 01/10/25 Date of Discharge: 01/11/25 Primary Care Physician: Dr. Ella Ventura MD Reason For Visit: RESP DISTRESS 01/02 INFLUENZA Diagnosis Discharge Diagnosis (1) Acute exacerbation of COPD with asthma: Status: Chronic Code(s): J44.1 - Chronic obstructive pulmonary disease with (acute) exacerbation; J45.901 - Unspecified asthma with (acute) exacerbation Plan 1. Acute exacerbation of COPD secondary to influenza A infection-continue IV corticosteroids and aerosol treatments #2 hypoxia secondary to #1-patient's pulse ox will be monitored, oxygen will be weaned if possible Total clinical time spent by myself addressing patient's medical issues, reviewing all of his data, and collaborating with patient's care team: 35 minutes Medications at Discharge Home Medications albuterol sulfate 90 mcg/actuation aerosol inhaler 2 puff inhalation Q6H PRN shortness of breath or wheezing #8.5 grams 01/11/25 budesonide 160 mcg-glycopyr 9 mcg-formot 4.8 mcg/actuation HFA inhaler (Breztri Aerosphere) 2 inh inhalation BID #10.7 grams 01/11/25 oseltamivir 75 mg capsule 75 mg PO BID #7 caps 01/11/25 Hospital Course Operations None Procedures None Summary of Care Provided Minutes Spent on Discharge: 31 Hospital Course: This 69-year-old white male was seen in the emergency room at [facility] with complaints of increased shortness of breath. Patient was noted to be afebrile with a respiratory rate of 26 and saturating 93% on room air. Patient had a chest x-ray taken, it was unremarkable, CBC and BMP were benign. Patient was found to be influenza A positive, he was given DuoNebs and steroids but continues to complain of shortness of breath, he was admitted for COPD exacerbation secondary to influenza A, he was kept on IV corticosteroids, given Zithromax, placed on Tamiflu and given aerosol treatments. Patient improved during his hospital stay, at the time of his discharge on 01/11/2025 he required 2 L of oxygen on ambulation only. On 01/11/2025, patient was seen and examined: On examination he appeared in good health and spirits. Vital signs as documented. Skin warm and dry and without overt rashes. Neck without JVD, neck was supple, trachea midline, thyroid was normal. Lungs clear bilaterally, normal air movement was noted. Heart exam notable for regular rhythm, normal sounds and absence of murmurs, rubs or gallops. Abdomen unremarkable and without evidence of organomegaly, masses, or abdominal aortic enlargement. Bowel sounds are present, abdomen is not distended. Extremities nonedematous, no cyanosis was noted, no clubbing was noted. Neuro: Cranial nerves II through XII are grossly intact, no focal motor deficits were noted, sensation to light touch and pinprick intact, motor exam 5/5 throughout. Psych: Patient is alert and oriented x3, he does not appear anxious or depressed, he does not appear agitated. On 01/11/2025, patient was felt to be stable for discharge home Weight / BMI Weight Weight: 78.109 kg Body Mass Index (BMI) 22.7 ABG / Lab / Microbiology Data 01/10/25 05:44 01/10/25 05:44 Microbiology: Microbiology 01/09/25 19:00 Sputum, Expectorated/Coughed Gram Stain - Final 01/09/25 19:00 Sputum, Expectorated/Coughed Respiratory Culture - Final Mixed normal respiratory cesar. No Haemophilus, Streptococcus pneumoniae, beta-hemolytic Streptococcus or Staphylococcus aureus isolated. 01/09/25 14:00 Mucosa - Nose SARS-CoV-2, Influenza & RSV (PCR) - Final Influenzae A D/C Instructions Discharge Diet: No restrictions Weight Bearing Status: Full weight bearing DC O2, CPAP, BIPAP Needs RN Home O2 Qualification: Home O2 Qualification: Is the patient on home oxygen No 01/11/25 12:13 Home O2 Qualification: AT REST 1- Pulse Ox at rest 96 01/11/25 12:13 Home O2 Qualification: WITH AMBULATION 1- Pulse Ox with ambulation 92 01/11/25 12:13 1- Oxygen Flow Rate with 0 01/11/25 12:13 ambulation 2- Pulse Ox with ambulation 90 01/10/25 15:11 2- Oxygen Flow Rate with 2 01/10/25 15:11 ambulation Home O2 Discharge instructions: No Meaningful Use Info Meaningful Use Meaningful Use Diagnoses (Choose all that apply): None applicable Ischemic Stroke Statin Dosing Therapy Reference: STATIN DOSE THERAPY REFERENCE: * Patients > 75 years receive moderate or high dose statin therapy. * Patients 75 years or YOUNGER should receive HIGH intensity statin dose unless contraindicated. You will be required to document reason for non-treatment if statin daily dose does not meet guidelines. HIGH DOSE STATIN THERAPY DAILY Atorvastatin > than or = to 40 mg Rosuvastatin > than or = to 20 mg Amlodipine + Atorvastatin > than or = to 2.5/40 mg Ezetimibe + Simvastatin 10/80 mg Simvastatin 80mg Discharge Plan Admission Admit Date/Time: 01/10/25 18:49 Primary Reason for Your Visit: Exacerbation of COPD, influenza A Attending Provider: Isidoro Acuña Primary Care Provider: Ella Ventura Consulting Providers: Marita Tiwari Discharge Orders/Prescriptions Prescriptions: New oseltamivir 75 mg Capsule 75 mg PO BID Qty: 7 0RF Continued albuterol sulfate 90 mcg/actuation HFA aerosol inhaler 2 puff inhalation Q6H PRN (Reason: shortness of breath or wheezing) Qty: 8.5 1RF Breztri Aerosphere 160-9-4.8 mcg/actuation HFA aerosol inhaler 2 inh inhalation BID Qty: 10.7 1RF Discontinued albuterol sulfate 2.5 mg /3 mL (0.083 %) solution for nebulization 2.5 mg inhalation Q4H PRN (Reason: bronchospasm) Qty: 75 0RF Referrals / Follow Up: Ella Ventura MD [Primary Care Provider] - Within 2 Weeks Disposition Disposition (needs filled in before D/C Order can be placed): Home, Self Care Charges/Coding Visit Charges Inpatient E&M: 89952 Disch Hosp >30min
--- NOTE | 2025-01-11 15:31 | CASEMGMT ---
DC order noted. RN CM into pt room, Pt denies questions or concerns at this time and states he has a ride home.
== END 2025-01-11 16:40 | disposition home or self-care (01) | DRG 191 ==
LOC: ED 17:24 → PCU 17:28
PROVIDERS: Admitting Provider Internal Medicine; Emergency Provider Emergency Medicine; PCP Internal Medicine; Visit Provider Internal Medicine
DX: J44.1 Chronic obstructive pulmonary disease with (acute) exacerbation (principal); J45.901 Unspecified asthma with (acute) exacerbation; J44.0 Chronic obstructive pulmonary disease with (acute) lower respiratory infection; J10.1 Influenza due to other identified influenza virus with other respiratory manifestations; F17.210 Nicotine dependence, cigarettes, uncomplicated; Z86.16 Personal history of COVID-19
CPT/HCPCS: 36415; 71045; 80048; 84484; 85025; 87070; 87205; 87631; 93005; 94640; 94760; 99283; 99406; A4216

== ENCOUNTER → 2025-01-20 | Outpatient (CLI) | payer OTHER, SELFPAY ==
--- NOTE | 2025-01-20 14:20 | RAD_ITS ---
PROCEDURE: CHEST PA AND LATERAL REASON FOR EXAM: Shortness of breath TECHNIQUE: Frontal and lateral views of the chest. COMPARISON: 01/09/2025 FINDINGS: The heart size is normal. There are atherosclerotic calcifications of the thoracic aorta. Lungs are hyperinflated. The bones are unremarkable. RAD/Chest PA and Lateral IMPRESSION: COPD changes with no acute cardiopulmonary disease. Reading Location: [facility]
== END | disposition home or self-care (01) ==
LOC: RAD 14:17
PROVIDERS: PCP Internal Medicine
DX: R06.02 Shortness of breath (principal)
CPT/HCPCS: 71046

== ENCOUNTER → 2025-03-15 | Outpatient (CLI) | payer OTHER, SELFPAY ==
[2025-03-15 10:27] LABS: Absolute Lymphocyte Count 2.59 X10^3/uL (0.83-4.51); Absolute Neutrophil Count 3.4 X10^3/uL (2.0-7.7); Basophil# 0.03 X10^3/uL; Basophil% 0.4 % (0-1); Eosinophils% 5.3 % (0-5); Hematocrit 41.6 % (40-54); Hemoglobin 14.2 g/dL (13.0-16.5); Lymphocyte # 2.59 X10^3/ul (0.83-4.51); Lymphocyte % 34.2 % (19-41); Mean Corp Hgb Conc 34.1 g/dL (32-36); Mean Corpuscular Hgb 31.4 pg (27.0-32.0); Mean Platelet Vol. 12.9 fl (6.2-12.0); Monocyte# 1.09 X10^3/uL; Monocyte% 14.4 % (0-10); NRBC Flagged by Analyzer 0 % (0-5); Neutrophil # 3.44 X10^3/uL (2.7-7.7); Neutrophil % 45.4 % (47-70); Platelet Count 139 K/mm3 (150-450); RBC Distribution Width CV 13.2 % (11.6-14.6); RBC Distribution Width SD 44.9 fl (35.1-43.9); Red Blood Count 4.52 M/mm3 (4.6-6.2); White Blood Count 7.6 K/mm3 (4.4-11.0)
[2025-03-15 10:52] LABS: ALB/GLOB Ratio 1.4 RATIO (0.9-2.4); AST(SGOT) 15 U/L (<=37); Alanine Aminotransfer ALT/SGPT 10 U/L (<=46); Albumin, Serum 4.1 g/dL (3.4-4.8); Alkaline Phosphatase 70 U/L (40-129); Anion Gap 11 (5-15); BUN 17 mg/dL (4-19); BUN/Creat Ratio 18.6 RATIO (10-20); Calcium,Total 9.1 mg/dL (7.6-11.0); Carbon Dioxide 24.7 mmol/L (21.0-32.0); Chloride 103 mmol/L (98-108); Cholesterol 150 mg/dL (<=200); Creatinine, Serum 0.92 mg/dL (0.70-1.20); EST Glomerular Filtration Rate 92 (>60); Globulin 2.8 g/dL (2.2-4.2); Glucose 101 mg/dL (70-99); High Density Lipoprotein 66 mg/dL; Low Density Lipoprotein Calc. 64 mg/dL; Potassium 4.2 mmol/L (3.3-5.1); Protein, Total 6.9 g/dL (5.9-8.4); Sodium Level 138 mmol/L (133-145); Total Bilirubin 0.48 mg/dL (0.00-1.30); Triglycerides 99 mg/dL; Very Low Density Lipoprotein 20 mg/dL (5-40); cholesterol:hdl ratio screen 2.27
[2025-03-15 10:53] LABS: PSA,Total - Annual Screen 0.74 ng/mL (0.02-4.00)
== END | disposition home or self-care (01) ==
LOC: MFPLAB 08:22
PROVIDERS: PCP Internal Medicine; Visit Provider Family Medicine
DX: Z13.220 Encounter for screening for lipoid disorders (principal); J44.9 Chronic obstructive pulmonary disease, unspecified; Z12.5 Encounter for screening for malignant neoplasm of prostate; Z13.1 Encounter for screening for diabetes mellitus
CPT/HCPCS: 36415; 80053; 80061; 84153; 85025; G0103

== ENCOUNTER → 2025-04-20 | Outpatient (CLI) | payer OTHER, SELFPAY | END | disposition home or self-care (01) | LOC: PSN 07:06 | PROVIDERS: PCP Internal Medicine | DX: J44.9 Chronic obstructive pulmonary disease, unspecified (principal) | CPT/HCPCS: 94060; 94726; 94729 ==

== ENCOUNTER → 2025-04-21 | Outpatient (CLI) | payer OTHER, SELFPAY ==
--- NOTE | 2025-04-21 12:54 | STRESSREP ---
Stress Test Report Date: 04/21/2025 Procedure: Exercise tolerance test Indications: Shortness of breath Consent: Per the patient Procedure: The patient exercised on a Patel protocol for 5 minutes and 35 seconds achieving a peak heart rate of 141 bpm (92% predicted maximal heart rate) with a peak blood pressure 182/70 mmHg and a peak MET capacity of approximately 7 MET's. The baseline ECG demonstrated normal sinus rhythm. The peak exercise ECG demonstrated no significant ischemic changes. [There were no cardiac dysrhythmias pretest, during exercise, or recovery]. The functional capacity was considered normal for age. The patient had no complaint of chest discomfort during exercise or recovery. The examination was discontinued secondary to dyspnea. Impression: 1. Technically adequate (percent predicted maximal heart rate greater than 85%) exercise tolerance test 2. Stress test is negative for exercise-induced chest pain. 3. Stress test test is negative for exercise-induced EKG changes of ischemia. 4. Functional capacity is normal for age This note was generated with [employer] software. It may contain incorrect words, spelling, and punctuation that were not noted in checking the note before signing.
== END | disposition home or self-care (01) ==
PROVIDERS: PCP Family Medicine; Referring Provider Family Medicine; Visit Provider Family Medicine
DX: R06.02 Shortness of breath (principal)
CPT/HCPCS: 93017

== ENCOUNTER → 2025-05-11 | Outpatient (CLI) | payer OTHER, SELFPAY ==
[2025-05-11 16:19] LABS: Absolute Lymphocyte Count 2.26 X10^3/uL (0.83-4.51); Absolute Neutrophil Count 5.7 X10^3/uL (2.0-7.7); Basophil# 0.04 X10^3/uL; Basophil% 0.4 % (0-1); Eosinophil# 0.24 X10^3/uL; Eosinophils% 2.7 % (0-5); Hematocrit 42.3 % (40-54); Hemoglobin 14.6 g/dL (13.0-16.5); Lymphocyte # 2.26 X10^3/ul (0.83-4.51); Mean Corp Hgb Conc 34.5 g/dL (32-36); Mean Corpuscular Hgb 31.7 pg (27.0-32.0); Mean Platelet Vol. 13.5 fl (6.2-12.0); Monocyte% 8.8 % (0-10); NRBC Flagged by Analyzer 0 % (0-5); Neutrophil # 5.67 X10^3/uL (2.7-7.7); Neutrophil % 62.8 % (47-70); POSITIVE MORPHOLOGY YES; Platelet Count 129 K/mm3 (150-450); RBC Distribution Width CV 13.1 % (11.6-14.6); RBC Distribution Width SD 44.8 fl (35.1-43.9)
[2025-05-11 20:59] LABS: Differential Indicated SCAN CRITERIA MET
[2025-05-11 21:00] LABS: Differential Comment SCANNED; Platelet Estimate SLT DEC (ADEQ)
== END | disposition home or self-care (01) ==
LOC: LAB 15:54
PROVIDERS: PCP Family Medicine; Referring Provider Internal Medicine Pulmonary Disease; Visit Provider Internal Medicine Pulmonary Disease
DX: J44.9 Chronic obstructive pulmonary disease, unspecified (principal)
CPT/HCPCS: 36415; 85025